=== PATIENT | male | born 1960 | race Caucasian/White ===

== ENCOUNTER → 2018-09-16 06:54 | Outpatient (CLI) | payer OTHER, SELFPAY ==
[2018-08-15 15:45] VITALS: BMI 30.7
--- NOTE | 2018-09-16 11:19 | STRESSREP ---
Stress Test Report Exercise stress myocardial perfusion scan. 58-year-old man with a history of previous coronary artery disease involving the right coronary artery as well as the left anterior descending artery. Stress protocol: Resting EKG demonstrates normal sinus rhythm with rate of 60 bpm normal intervals are noted resting blood pressure 138/88 mmHg. The patient exercised according to regular Graham protocol for total duration of 11 minutes patient completed 2 minutes into stage IV of the Graham protocol the maximum heart rate attained was 127 bpm which was 77% of maximum predicted heart rate the maximum workload was 13.4 metabolic equivalents. At rest there were no ST or T wave changes noted suggest ischemia at peak exercise upsloping ST changes only were noted with normally the criteria for ischemia. No clinical angina was noted the test was terminated due to leg fatigue. The resting blood pressure 138/88 with a peak blood pressure of 160/80 mmHg. Myocardial perfusion protocol. 14.8 mCi of technetium 99m sestamibi was injected at rest. Patient exercised according to regular Graham protocol for total duration of 11 minutes at peak exercise 44.7 mCi of technetium 99m sestamibi was injected stress images were obtained stress and rest images were reconstructed and compared in the short axis vertical long and horizontal long axis. Gated images were also obtained per Perfusion SPECT analysis: Review of the stress images demonstrate normal uptake of tracer noted in all areas of the myocardium. The resting images similarly demonstrate normal uptake of tracer noted in all areas of the myocardium. No areas of reversibility are noted suggest ischemia. Gated SPECT analysis: The gated ejection fraction is noted to be 59%. Conclusion: Normal exercise myocardial perfusion stress test at a high workload. Preserved ejection fraction. No arrhythmias noted. Excellent functional capacity.
== END ==
PROVIDERS: Referring Provider Internal Medicine Cardiovascular Disease; Visit Provider Internal Medicine Cardiovascular Disease
DX: I25.10 Atherosclerotic heart disease of native coronary artery without angina pectoris (principal)
CPT/HCPCS: 78452; 93017; A9500; A4216

== ENCOUNTER → 2019-02-26 11:11 | Outpatient (CLI) | payer OTHER, SELFPAY ==
[2019-02-26 09:42] VITALS: BMI 30.2
--- NOTE | 2019-02-26 11:21 | CT_ITS ---
STUDY: CT CHEST WITHOUT CONTRAST REASON FOR EXAM: Male, 59 years old. Nodule. History of prior heart stents. RADIATION DOSAGE (If Supplied By Facility): CTDIvol = ( 20.07 ) mGy, DLP = ( 971.78 ) mGycm TECHNIQUE: Transaxial imaging was performed without the administration of intravenous contrast material. Multiplanar coronal and sagittal images were reformatted. Individualized dose optimization techniques were used for this CT. COMPARISON: None. FINDINGS: The lungs are well expanded. There is a 2 mm nodule in the posterior right lung apex best seen on image 29 of series 4. No other visualized mass or infiltrate is noted within the lungs. There is no demonstrated pleural abnormality. Normal heart and pericardium. There are calcifications of the coronary arteries. Normal mediastinum. Normal hilar regions. Normal unenhanced pulmonary arteries. Normal aorta arch and descending thoracic aorta. There are multi-level degenerative changes of the thoracic spine. The soft tissues of the chest appear grossly normal. Hepatosplenomegaly. There are large exophytic cyst off the upper poles of both kidneys. CT/Chest without Contrast IMPRESSION: 1. Tiny nodule in the right lung apex. There is no other visualized mass or infiltrate. 2. Coronary artery calcifications. 3. Degenerative changes of the thoracic spine. 4. Bilateral renal cysts. 5. Hepatosplenomegaly. Electronically Signed: Everardo Odell DO at 16:52 EDT Tel [phone], Service support ,
== END ==
DX: R91.1 Solitary pulmonary nodule (principal)
CPT/HCPCS: 71250

== ENCOUNTER → 2019-03-14 14:54 | Outpatient (CLI) | payer OTHER, SELFPAY ==
[2019-02-26 09:42] VITALS: BMI 30.2
--- NOTE | 2019-03-14 14:55 | ECHOD_ITS ---
Reason For Study: Afib/Flutter Procedure This was a 2D Doppler, Color Flow transthoracic echocardiogram. Exam performed in department. Left Ventricle Normal LV size. Left ventricular systolic function is normal. The estimated ejection fraction is 55 %. Normal diastology for age. No regional wall motion abnormalities noted. Right Ventricle Normal RV size. Normal systolic function. Atria Normal left atrium. Normal right atrium. Mitral Valve Normal mitral valve. Tricuspid Valve Normal tricuspid valve. Aortic Valve Normal aortic valve. Pulmonic Valve Normal pulmonic valve. Great Vessels Normal aortic root. The pulmonary artery is normal size. Normal inferior vena cava. Pericardium/Pleural No pericardial effusion. MMode/2D Measurements & Calculations LVIDd: 5.6 cm IVSd: 1.2 cm LA dimension: 4.2 cm LVIDs: 4.2 cm LVPWd: 1.1 cm RVDd: 3.7 cm FS: 25.5 % LAV(MOD-bp): 63.9 ml LVAd ap4: 36.5 cm2 SV(MOD-sp4): 75.3 ml LAV(MOD-bp) Indexed: 28.8 ml/m2 EDV(MOD-sp4): 134.5 ml LAV(MOD-sp2): 64.6 ml EDV(sp4-el): 134.4 ml LAV(MOD-sp4): 50.7 ml LVAs ap4: 21.3 cm2 ESV(MOD-sp4): 59.2 ml ESV(sp4-el): 59.7 ml EF(MOD-sp4): 56.0 % EF(sp4-el): 55.5 % SV(sp4-el): 74.6 ml LA A4 area: 19.7 cm2 RA A4 area: 15.9 cm2 Time Measurements MV dec time: 0.22 sec Doppler Measurements & Calculations MV E max henrry: 60.0 cm/sec Lat Peak E' Henrry: 8.8 cm/sec Med Peak E' Henrry: 5.4 cm/sec MV A max henrry: 61.5 cm/sec E/E' lat: 6.8 E/E' med: 11.1 MV E/A: 0.98 MV V2 max: 70.2 cm/sec MV P1/2t max henrry: 63.4 cm/sec Ao V2 max: 98.1 cm/sec MV max P.0 mmHg MV P1/2t: 123.5 msec Ao max P.9 mmHg MV V2 mean: 41.0 cm/sec MV mean P.76 mmHg MV dec slope: 150.4 cm/sec2 MV V2 VTI: 22.9 cm MVA(P1/2t): 1.8 cm2 LV V1 max: 78.5 cm/sec PA V2 max: 111.7 cm/sec LV V1 max P.5 mmHg Interpretation Summary Normal LV size. Left ventricular systolic function is normal. The estimated ejection fraction is 55 %. Normal diastology for age. Structurally normal valves. Ordering Physician: Christopher Rowe Referring Physician: Christopher Rowe Performed By: Gianni Dejesus RCS
== END ==
PROVIDERS: Referring Provider Internal Medicine Cardiovascular Disease; Visit Provider Internal Medicine Cardiovascular Disease
DX: I48.0 Paroxysmal atrial fibrillation (principal); I48.92 Unspecified atrial flutter
CPT/HCPCS: 93306

== ENCOUNTER → 2020-01-21 09:22 | Outpatient (CLI) | payer OTHER, SELFPAY ==
[2020-01-21 08:53] VITALS: BMI 30.4
[2020-01-21 10:34] LABS: AST(SGOT) 32 U/L (15-37); Alanine Aminotransfer ALT/SGPT 57 U/L (16-61); Albumin, Serum 3.8 g/dL (3.2-5.0); Alkaline Phosphatase 90 U/L (45-117); Anion Gap 4 (5-15); BUN 14 mg/dL (7-18); BUN/Creat Ratio 16.7 RATIO (10-20); Bilirubin, Direct 0.24 mg/dL (0.00-0.30); Calcium,Total 8.6 mg/dL (8.5-10.1); Chloride 109 mmol/L (98-107); Cholesterol 81 mg/dL (200); Creatinine, Serum 0.84 mg/dL (0.70-1.30); EST Glomerular Filtration Rate 100 mL/min (>60); Est Glom Filt Rate - Afr Amer 121 mL/min (>60); Globulin 3.2 g/dL (2.2-4.2); Glucose 110 mg/dL (74-106); High Density Lipoprotein 13 mg/dL; Potassium 4.4 mmol/L (3.5-5.1); Sodium Level 141 mmol/L (136-145); Triglycerides 98 mg/dL; Very Low Density Lipoprotein 20 mg/dL (5-40)
== END ==
PROVIDERS: Referring Provider Internal Medicine Cardiovascular Disease; Visit Provider Internal Medicine Cardiovascular Disease
DX: I48.0 Paroxysmal atrial fibrillation (principal); E78.00 Pure hypercholesterolemia, unspecified; I25.10 Atherosclerotic heart disease of native coronary artery without angina pectoris; Z95.5 Presence of coronary angioplasty implant and graft; I10 Essential (primary) hypertension; I49.3 Ventricular premature depolarization; E78.6 Lipoprotein deficiency; E78.2 Mixed hyperlipidemia
CPT/HCPCS: 36415; 80048; 80061; 80076; 84443

== ENCOUNTER → 2020-05-13 07:43 | Outpatient (CLI) | payer OTHER, SELFPAY ==
[2020-01-21 08:53] VITALS: BMI 30.4
--- NOTE | 2020-05-13 07:46 | CT_ITS ---
STUDY: CT CHEST WITHOUT CONTRAST REASON FOR EXAM: Male, 60 years old. LUNG NODULE FOLLOW UP RADIATION DOSAGE (If Supplied By Facility): CTDIvol = ( 19.48 ) mGy, DLP = ( 691.20 ) mGycm TECHNIQUE: Transaxial imaging was performed without the administration of intravenous contrast material. Multiplanar coronal and sagittal images were reformatted. Individualized dose optimization techniques were used for this CT. COMPARISON: 02/26/2019 FINDINGS: There is a calcified granuloma in the posterior right upper lobe, stable. There is a 4 mm noncalcified nodule in the right lower lobe on image 60, stable. No new noncalcified pulmonary nodules. There is no demonstrated pleural abnormality. Normal heart and pericardium. There are coronary artery calcifications and stents. Normal mediastinum. Normal hilar regions. Normal unenhanced pulmonary arteries. Normal aorta arch and descending thoracic aorta. There are multi-level degenerative changes of the thoracic spine. Bilateral renal cysts are similar in their visualized extent. CT/Chest without Contrast IMPRESSION: 1. No new or enlarging noncalcified nodule/mass. 2. 4 mm noncalcified nodule, stable more than one year. No recommended specific imaging follow-up according to current [employer] guidelines. 3. Benign granuloma lateral right upper lobe. Electronically Signed: Dominic Meng MD ([place]) at 14:03 EDT , Service support ,
== END ==
DX: R91.1 Solitary pulmonary nodule (principal)
CPT/HCPCS: 71250

== ENCOUNTER 2020-10-15 08:42 | Outpatient (RCR) | payer OTHER, SELFPAY ==
[2020-01-21 08:53] VITALS: BMI 30.4
[2020-10-15] MEDS: COVID-19 VACC, MRNA(PFIZER)/PF 30 MCG/0.3 ML SYRINGE IM (13:51)
[2020-11-05] MEDS: COVID-19 VACC, MRNA(PFIZER)/PF 30 MCG/0.3 ML SYRINGE IM (13:44)
== END 2021-01-11 23:59 ==
LOC: IMMUN 08:42
PROVIDERS: Visit Provider Family Medicine
DX: Z23 Encounter for immunization (principal)
CPT/HCPCS: 0001A; 0002A; 91300

== ENCOUNTER → 2021-01-28 06:57 | Outpatient (CLI) | payer OTHER, SELFPAY ==
[2021-01-18 07:45] VITALS: BMI 30.3
[2021-01-18 11:11] LABS: AST(SGOT) 38 U/L (15-37); Alanine Aminotransfer ALT/SGPT 64 U/L (16-61); Alkaline Phosphatase 95 U/L (45-117); Bilirubin, Direct 0.22 mg/dL (0.00-0.30); Cholesterol 87 mg/dL (200); Globulin 3.4 g/dL (2.2-4.2); High Density Lipoprotein 17 mg/dL; Protein, Total 7.4 g/dL (6.4-8.2); Triglycerides 77 mg/dL; Very Low Density Lipoprotein 15 mg/dL (5-40)
--- NOTE | 2021-01-28 12:54 | STRESSREP ---
Stress Test Report Exercise myocardial perfusion stress test. 60-year-old man with a history of coronary artery disease. Stress protocol: Resting EKG demonstrates normal sinus rhythm with a rate of 80 bpm normal intervals are noted resting blood pressure is 126/70 mmHg. The patient exercised according to regular Graham protocol for total duration of 11 minutes completing 2 minutes into stage IV of the Graham protocol. The maximum heart rate attained was 130 bpm which was 80% of maximum predicted heart rate the maximum workload was 13.4 metabolic equivalents. At rest there were no ST or T wave changes noted to suggest ischemia and at peak exercise upsloping ST changes were noted. No evidence of ischemia was noted no clinical angina was noted occasional premature ventricular complexes present. The test was terminated due to the target heart rate being achieved and peak exercise dyspnea. The peak blood pressure was 160/70 mmHg which was an excellent blood pressure response to exercise. Myocardial perfusion protocol. 13.9 mCi of technetium 99m sestamibi was injected at rest. The patient exercised according to regular Graham protocol for 11 minutes and at peak exercise 44.2 mCi of technetium 99m sestamibi was injected stress images were obtained stress and rest images were reconstructed in comparing the short axis vertical long horizontal long axis. Gated images were also obtained to Perfusion SPECT analysis: Review of the stress images demonstrate normal uptake of tracer noted in all areas of the myocardium. The resting images similarly demonstrate normal uptake of tracer noted in all areas of the myocardium. No previous infarct is noted no ischemia is noted. Gated SPECT analysis: The gated ejection fraction is over 60%. Conclusion: Normal exercise myocardial perfusion stress test at a high workload. No clinical angina noted. Preserved ejection fraction. Excellent functional capacity.
== END ==
PROVIDERS: Referring Provider Internal Medicine Cardiovascular Disease; Visit Provider Internal Medicine Cardiovascular Disease
DX: I25.10 Atherosclerotic heart disease of native coronary artery without angina pectoris (principal); Z95.5 Presence of coronary angioplasty implant and graft
CPT/HCPCS: 36415; 78452; 80061; 80076; 93017; A9500; A4216

== ENCOUNTER 2021-10-20 14:17 | Outpatient (CLI) | payer OTHER, SELFPAY ==
[2021-10-20] MEDS: 0.9% Saline Lock 10 ML Syringe IV (14:26)
[2021-10-20 14:27] VITALS: BP 147/93; PULSE 69; RESP 16; TEMP 36.8; O2SAT 100; BMI 31.1
[2021-10-20 15:05] VITALS: BP 132/91; PULSE 69; RESP 16; TEMP 36.9; O2SAT 99
[2021-10-20 16:05] VITALS: BP 129/87; PULSE 65; RESP 16; TEMP 36.7; O2SAT 99
== END 2021-10-20 23:59 | disposition home or self-care (01) ==
LOC: MS3OUT 14:18 → MS3 14:18
PROVIDERS: Referring Provider Nurse Practitioner Adult Health; Visit Provider Nurse Practitioner Adult Health
DX: Z23 Encounter for immunization (principal); U07.1 COVID-19
CPT/HCPCS: J7050; M0247; A4216; Q0247

== ENCOUNTER → 2022-01-24 | Outpatient (CLI) | payer OTHER, SELFPAY ==
[2022-01-24 10:31] LABS: AST(SGOT) 36 U/L (15-37); Alanine Aminotransfer ALT/SGPT 69 U/L (16-61); Alkaline Phosphatase 96 U/L (45-117); Bilirubin, Direct 0.18 mg/dL (0.00-0.30); Cholesterol 78 mg/dL (200); Globulin 3.2 g/dL (2.2-4.2); High Density Lipoprotein 20 mg/dL; Protein, Total 7.2 g/dL (6.4-8.2); Triglycerides 85 mg/dL; Very Low Density Lipoprotein 17 mg/dL (5-40)
== END | disposition home or self-care (01) ==
LOC: LAB 09:46
PROVIDERS: PCP Internal Medicine; Referring Provider Internal Medicine Cardiovascular Disease; Visit Provider Internal Medicine Cardiovascular Disease
DX: E78.00 Pure hypercholesterolemia, unspecified (principal)
CPT/HCPCS: 36415; 80061; 80076

== ENCOUNTER → 2023-01-30 | Outpatient (CLI) | payer OTHER, SELFPAY ==
[2023-01-30 11:06] LABS: AST(SGOT) 31 U/L (15-37); Alanine Aminotransfer ALT/SGPT 51 U/L (16-61); Albumin, Serum 3.9 g/dL (3.2-5.0); Alkaline Phosphatase 97 U/L (45-117); Cholesterol 86 mg/dL (200); Globulin 3.5 g/dL (2.2-4.2); High Density Lipoprotein 15 mg/dL; Protein, Total 7.4 g/dL (6.4-8.2); Thyroid Stim Hormone (TSH) 3.36 uIU/mL (0.358-3.74); Triglycerides 78 mg/dL; Very Low Density Lipoprotein 16 mg/dL (5-40)
== END | disposition home or self-care (01) ==
LOC: LAB 09:04
PROVIDERS: PCP Internal Medicine; Referring Provider Internal Medicine Cardiovascular Disease; Visit Provider Internal Medicine Cardiovascular Disease
DX: E78.00 Pure hypercholesterolemia, unspecified (principal); Z95.5 Presence of coronary angioplasty implant and graft
CPT/HCPCS: 36415; 80061; 80076; 84443

== ENCOUNTER → 2023-02-12 | Outpatient (CLI) | payer OTHER, SELFPAY ==
--- NOTE | 2023-02-12 06:32 | ECHOD_ITS ---
Version 2 Reason For Study: CAD Procedure This was a 2D Doppler, Color Flow transthoracic echocardiogram. The study was technically difficult. Contrast injection was performed. Exam performed in department. Left Ventricle Normal LV size. Left ventricular systolic function is normal. The estimated ejection fraction is 60 %. Stage 1 diastolic dysfunction. No regional wall motion abnormalities noted. Right Ventricle Normal RV size. Normal systolic function. Atria Normal left atrium. Normal right atrium. Patent foramen ovale. Mitral Valve Normal mitral valve. Tricuspid Valve Normal tricuspid valve. Aortic Valve Trisinus/trileaflet aortic valve. Pulmonic Valve Normal pulmonic valve. Great Vessels Normal aortic root. The pulmonary artery is normal size. Pericardium/Pleural No pericardial effusion. Medication 20 gauge I.V. with prn adaptor inserted into right arm. Diluted definity 2ml given slow IV push to enhance endocardial definition. Performed a rapid injection of agitated mix of 9 cc saline and 1cc air to assess for atrial septal defect. MMode/2D Measurements & Calculations LVIDd: 5.8 cm IVSd: 0.77 cm Ao root diam: 3.8 cm LVIDs: 4.0 cm LVPWd: 0.99 cm LA dimension: 3.8 cm RVDd: 3.5 cm FS: 31.9 % LAV(MOD-bp): 49.2 ml LVAd ap4: 32.0 cm2 SV(MOD-sp4): 59.2 ml LAV(MOD-bp) Indexed: 22.0 ml/m2 LVLd ap4: 7.6 cm LAV(MOD-sp2): 56.4 ml EDV(MOD-sp4): 108.3 ml LAV(MOD-sp4): 37.5 ml EDV(sp4-el): 113.6 ml LVAs ap4: 20.1 cm2 LVLs ap4: 6.8 cm ESV(MOD-sp4): 49.1 ml ESV(sp4-el): 50.5 ml EF(MOD-sp4): 54.7 % EF(sp4-el): 55.5 % SV(sp4-el): 63.1 ml LA A4 area: 16.1 cm2 RA A4 area: 15.9 cm2 Time Measurements MV dec time: 0.24 sec Doppler Measurements & Calculations MV E max henrry: 51.5 cm/sec Lat Peak E' Henrry: 12.4 cm/sec Med Peak E' Henrry: 6.4 cm/sec MV A max henrry: 69.1 cm/sec E/E' lat: 4.1 E/E' med: 8.0 MV E/A: 0.75 MV V2 max: 68.9 cm/sec MV P1/2t max henrry: 51.0 cm/sec Ao V2 max: 118.4 cm/sec MV max P.9 mmHg MV P1/2t: 70.0 msec Ao max P.6 mmHg MV V2 mean: 41.6 cm/sec Ao V2 mean: 87.2 cm/sec MV mean P.80 mmHg MV dec slope: 213.3 cm/sec2 Ao mean P.4 mmHg MV V2 VTI: 15.0 cm MVA(P1/2t): 3.1 cm2 Ao V2 VTI: 25.0 cm AV (velocity ratio): 0.71 LV V1 max: 90.7 cm/sec PA V2 max: 118.2 cm/sec LV V1 max P.3 mmHg PA V2 mean: 74.9 cm/sec LV V1 mean P.0 mmHg LV V1 mean: 66.9 cm/sec LV V1 VTI: 17.8 cm ECHO/Echo Complete W/ Contrast Interpretation Summary Normal LV size. Left ventricular systolic function is normal. The estimated ejection fraction is 60 %. No regional wall motion abnormalities noted. Stage 1 diastolic dysfunction. Patent foramen ovale. Contrast injection was performed. Ordering Physician: Christopher Rowe Referring Physician: Elina Head Performed By: Gianni Dejesus RCS
--- NOTE | 2023-02-12 08:52 | STRESSREP ---
Stress Test Report Exercise myocardial perfusion stress test. 62-year-old man with a history of coronary artery disease Stress protocol: Resting EKG demonstrates normal sinus rhythm with a rate of 86 bpm resting blood pressure is 122/78 mmHg. The patient exercised according to the regular Graham protocol for a total duration of 11 minutes attaining a maximum heart rate of 160 bpm which was 100% of maximum predicted heart rate; the maximum workload was 13.7 metabolic equivalents. At rest there were no ST or T wave changes noted to suggest ischemia and at peak exercise upsloping ST changes only were noted which did not meet the criteria for ischemia. No clinical angina was noted the test was terminated due to the target heart rate being achieved/fatigue. The peak blood pressure was 168/74 mmHg. Rate-pressure product was 24,000. Myocardial perfusion protocol. 14.8 mCi of technetium 99m sestamibi was injected at rest. The patient exercised according to regular Grhaam protocol for total duration of 11 minutes and at peak exercise 45 mCi of technetium 99m sestamibi was injected stress images were obtained stress and rest images were reconstructed in comparing the short axis vertical long and horizontal long axis. Gated images were also obtained. Perfusion SPECT analysis: Review of the stress images demonstrate normal uptake of tracer noted in all areas of the myocardium. The resting images similarly demonstrate normal uptake of tracer noted in all areas of the myocardium. No areas of reversibility are noted to suggest ischemia no previous infarct was noted. Gated SPECT analysis: The gated ejection fraction is 62%. Conclusion: Normal exercise myocardial perfusion stress test at a high workload Preserved ejection fraction.
== END | disposition home or self-care (01) ==
LOC: CVS 06:31
PROVIDERS: PCP Internal Medicine; Referring Provider Internal Medicine Cardiovascular Disease; Visit Provider Internal Medicine Cardiovascular Disease
DX: I10 Essential (primary) hypertension (principal); I25.10 Atherosclerotic heart disease of native coronary artery without angina pectoris; Z95.5 Presence of coronary angioplasty implant and graft
CPT/HCPCS: 78452; 93017; 93306; A9500; Q9957; A4216; C8929

== ENCOUNTER → 2024-01-29 | Outpatient (CLI) | payer OTHER, SELFPAY ==
[2024-01-29 11:31] LABS: AST(SGOT) 34 U/L (15-37); Alanine Aminotransfer ALT/SGPT 59 U/L (16-61); Alkaline Phosphatase 104 U/L (45-117); Anion Gap 2 (5-15); BUN 11 mg/dL (7-18); BUN/Creat Ratio 12.1 RATIO (10-20); Bilirubin, Direct 0.18 mg/dL (0.00-0.30); Calcium,Total 8.9 mg/dL (8.5-10.1); Chloride 107 mmol/L (98-107); Cholesterol 83 mg/dL (200); Creatinine, Serum 0.91 mg/dL (0.70-1.30); EST Glomerular Filtration Rate 89 mL/min (>60); Est Glom Filt Rate - Afr Amer 108 mL/min (>60); Globulin 3.4 g/dL (2.2-4.2); Glucose 111 mg/dL (74-106); High Density Lipoprotein 18 mg/dL; Potassium 4.9 mmol/L (3.5-5.1); Protein, Total 7.4 g/dL (6.4-8.2); Sodium Level 137 mmol/L (136-145); Thyroid Stim Hormone (TSH) 3.24 uIU/mL (0.358-3.74); Triglycerides 84 mg/dL; Very Low Density Lipoprotein 17 mg/dL (5-40)
== END | disposition home or self-care (01) ==
LOC: LAB 09:24
PROVIDERS: PCP Internal Medicine; Referring Provider Internal Medicine Cardiovascular Disease; Visit Provider Internal Medicine Cardiovascular Disease
DX: E78.2 Mixed hyperlipidemia (principal); I10 Essential (primary) hypertension
CPT/HCPCS: 36415; 80048; 80061; 80076; 84443

== ENCOUNTER → 2025-03-03 | Outpatient (CLI) | payer OTHER, SELFPAY ==
[2025-03-03 10:03] LABS: Hematocrit 48.5 % (40-54); Hemoglobin 16.1 g/dL (13.0-16.5); Immature Granulocytes Count 0.060 X10^3/uL (0.0-0.0); Mean Corp Hgb Conc 33.2 g/dL (32-36); Mean Corpuscular Volume 94.7 fL (80-94); Mean Platelet Vol. 10.0 fl (6.2-12.0); NRBC Flagged by Analyzer 0 % (0-5); Platelet Count 188 K/mm3 (150-450); RBC Distribution Width CV 13.2 % (11.6-14.6); RBC Distribution Width SD 46.2 fl (35.1-43.9); Red Blood Count 5.12 M/mm3 (4.6-6.2); White Blood Count 5.0 K/mm3 (4.4-11.0)
[2025-03-03 11:44] LABS: AST(SGOT) 36 U/L (<=37); Alanine Aminotransfer ALT/SGPT 57 U/L (<=46); Albumin, Serum 4.5 g/dL (3.4-4.8); Alkaline Phosphatase 101 U/L (40-129); Anion Gap 11 (5-15); BUN 15 mg/dL (4-19); BUN/Creat Ratio 17.1 RATIO (10-20); Calcium,Total 9.5 mg/dL (7.6-11.0); Carbon Dioxide 24.5 mmol/L (21.0-32.0); Chloride 105 mmol/L (98-108); Cholesterol 90 mg/dL (<=200); Globulin 2.7 g/dL (2.2-4.2); Glucose 122 mg/dL (70-99); Low Density Lipoprotein Calc. 54 mg/dL; PSA,Total- Diagnostic 1.48 ng/mL (0.00-4.00); Potassium 5.0 mmol/L (3.3-5.1); Triglycerides 89 mg/dL; Very Low Density Lipoprotein 18 mg/dL (5-40); cholesterol:hdl ratio screen 4.99
--- OUTSIDE RECORDS SUMMARY | 2025-03-03 20:48 | XMS RPT_ITS | CCD ---
Author Organization [facility] Care Team Providers Care Vessel Slag Worker Name Role Phone Gómez GUERRERO, CESAR Yates Attending Provider [phone] Dr. Christopher Rowe Attending Provider [phone] Town Doctor, Out of Primary Care Provider Jamison bradford [facility] Doctor, Out of Referring Provider Kike guerrier [facility] Doctor, Out of Referring Provider Dr. Christopher Conde Attending Provider [phone] Elina Headley Primary Care Provider [phone] Dr. Edward Harding Attending Provider [phone] Dr. Christopher Rowe Referring Provider [phone] Christopher Rowe Other Provider KAYODE ROSENBAUM, DR ELINA Yates Primary Care Unavailab fareed HEATHER ASSOCIATE MERCHANDISE PLANNER-RAT BREEDER, EDMOND Attending Unavaila ble Christopher Rowe Attending Unavailable Elina Headley Referring Unavailable Elina Headley Primary Care Unavailable Dr. Elina Headley MD Referring Provider [phone] Dr. Christopher Rowe MD Attending Provider [phone] Dr. Chao Byrd MD Primary Care Provider Medications Current Medications Medication Drug Class(es) Dates Sig (Normalized) Sig (Original) aspirin 81 mg delayed release oral tablet (16 sources) Platelet Aggregation Inhibitor, Nonsteroidal Anti-inflammatory Drug Start: 01-21-2020 take 1 tablet by mouth once daily Aspirin (Adult Aspirin Regimen) 81 mg tablet,delayed release (/EC) Active 81 mg PO DAILY January 21, 2020 12:00am Start: 08-15-2017 End: 01-21-2020 Aspirin 325 mg tablet Discon tinued 81 mg PO daily August 15, 2017 5:09pm January 21, 2020 9:01am Start: 08-15-2017 End: 01-21-2020 take 81 mg by mouth once daily Aspirin Discontinued 81 MG PO daily August 15, 2017 5:09pm January 21, 2020 9:01am Start: 08-15-2017 End: 08-15-2017 take 1 tablet by mouth once daily Aspirin 325 mg tablet Discontinued 325 mg PO daily August 15, 2017 1:00am August 15, 2017 5:16pm Start: 08-15-2017 End: 08-15-2017 Aspirin (Adult Low Dose Aspi rin) 81 mg tablet,delayed release (DR/EC) Discontinued 81 mg PO daily August 15, 2017 1:00am August 15, 2017 4:36pm atenolol 50 mg oral tablet (20 sources) beta-Adrenergic Alirio Start: 08-15-2017 End: 03-03-2025 take 1 tablet by mouth once daily Atenolol 50 mg tablet Active 50 mg PO DAILY 90 4 March 03, 2025 9:11am Start: 08-15-2017 End: 07-26-2018 Atenolol 50 mg tablet Discon tinued PO 90 90 0 August 15, 2017 1:00am July 26, 2018 3:06pm Start: 07-18-2017 End: 08-15-2017 take 1 tablet by mouth once Atenolol 25 mg tablet Disc ontinued 25 mg PO ONCE July 18, 2017 1:00am August 15, 2017 1:16pm atorvastatin 80 mg oral tablet (20 sources) HMG-CoA Reductase Inhibitor Start: 08-15-2017 End: 03-03-2025 take 1 tablet by mouth at bedtime Atorvastatin 80 mg tablet Active 80 mg PO AT BEDTIME 90 3 March 03, 2025 9:11am cholecalciferol 0.025 mg oral capsule (1 source) Vitamin D Start: 03-03-2025 take 1 capsule by mouth once daily Cholecalciferol (Vitamin D3) 25 mcg (1,000 unit) capsule Active 25 ug PO daily March 03, 2025 12:00am clopidogrel 75 mg oral tablet (20 sources) P2Y12 Platelet Inhibitor Start: 07-18-2017 End: 03-03-2025 take 1 tablet by mouth once daily Clopidogrel 75 mg tablet Active 75 mg PO DAILY 90 3 March 03, 2025 9:11am losartan potassium 50 mg oral tablet (20 sources) Angiotensin 2 Receptor Alirio Start: 03-21-2018 End: 03-03-2025 take 1 tablet by mouth once daily Losartan 50 mg tablet Active 50 mg PO daily 90 3 March 03, 2025 9:11am omega-3 acid ethyl esters (mcc) 1000 mg oral capsule (4 sources) Start: 07-18-2017 Mineral 1-Ccn-Ckp-Fish Oil (Fish Oil) 1,000 mg (120 mg-180 mg) capsule Active 1 NMA PO 0 July 18, 2017 1:00am Completed/Discontinued Medications Medication Drug Class(es) Dates Sig (Normalized) Sig (Original) apixaban 5 mg oral tablet (4 sources) Factor Xa Inhibitor Start: 02-26-2019 End: 02-26-2019 take 1 tablet by mouth twice daily Apixaban 5 mg tablet Discontinued 5 mg PO TWICE A DAY 60 0 February 26, 2019 12:00am February 26, 2019 10:33am dexamethasone 6 mg oral tablet (8 sources) Corticosteroid Start: 10-20-2021 End: 01-24-2022 take 1 tablet by mouth once daily Dexamethasone (Decadron) 6 mg tablet Discontinued 6 mg PO DAILY 5 0 January 24, 2022 9:05am January 24, 2022 9:06am pt has not started yet 24 hr dilTIAZem hydrochloride 120 mg extended release oral capsule (4 sources) Calcium Channel Alirio Start: 02-26-2019 End: 02-26-2019 take 1 capsule by mouth once daily Diltiazem Hcl 120 mg capsule,extended release 24hr Discontinued 120 mg PO DAILY 30 0 February 26, 2019 12:00am February 26, 2019 10:33am metoprolol tartrate 25 mg oral tablet (4 sources) beta-Adrenergic Alirio Start: 02-26-2019 End: 02-26-2019 take 1 tablet by mouth twice daily Metoprolol Tartrate 25 mg tablet Discontinued 25 mg PO TWICE A DAY 60 0 February 26, 2019 12:00am February 26, 2019 10:33am niacin 500 mg extended release oral capsule (4 sources) Nicotinic Acid Start: 07-18-2017 End: 08-15-2017 take 1 capsule by mouth once daily in the morning Niacin 500 mg capsule, extended release Discontinued 500 mg PO EVERY MORNING July 18, 2017 1:00am August 15, 2017 5:10pm simvastatin 40 mg oral tablet (8 sources) HMG-CoA Reductase Inhibitor Start: 08-15-2017 End: 08-15-2017 Simvastatin 40 mg tablet Discontinued PO 90 90 0 August 15, 2017 1:00am August 15, 2017 5:13pm Start: 08-15-2017 End: 08-15-2017 Simvastatin Discontinued PO 90 90 August 15, 2017 1:00am August 15, 2017 5:13pm Start: 07-18-2017 End: 08-15-2017 take 1 tablet by mouth once daily in the morning Simvastatin 20 mg tablet Discontinued 20 mg PO EVERY MORNING July 18, 2017 1:00am August 15, 2017 1:16pm Problems Active Problems Problem Classification Problem Date Documented Da te Episodic/Chronic Cardiac dysrhythmias (8 sources) Ventricular premature beats; Translations: [Ventricular premature depolarization] Onset: 02-06-2019 01-17-2021 Chronic Comment on above: admitted w/ sepsis Coronary atherosclerosis and other heart disease (8 sources) Old myocardial infarction; Translations: [Old myocardial infarction] 08-15-2017 Chronic Disorders of lipid metabolism (7 sources) Mixed hyperlipidemia; Translations: [Mixed hyperlipidemia] Chronic Essential hypertension (7 sources) Essential hypertension; Translations: [Essential (primary) hypertension] Chronic Other nutritional; endocrine; and metabolic disorders (4 sources) Cholesterol level - finding; Translations: [Lipoprotein deficiency] 01-17-2021 Chronic Past or Other Problems Problem Classification Problem Date Documented Da te Episodic/Chronic Coronary atherosclerosis and other heart disease (3 sources) Presence of coronary angioplasty implant and graft; Translations: [Percutaneous transluminal coronary angioplasty status] Onset: 05-12-2008 Episodic Viral infection (8 sources) Disease caused by 2019-nCoV; Translations: [COVID-19] Onset: 10-04-2021 01-23-2022 Episodic Results Test Name Value Interpretation Reference Range Facility Basophil percentageOrdered B y: [place] on 01-30-2023 Bilirubin [Mass/Vol] 0.90 mg/dL 0.20-1.00 [facility] Comment on above: For patients on eltr ombopag therapy, use of Dimension [place] TBIL is not recommended. Cholesterol [Mass/Vol] 86 mg/dL <[address] [facility] Comment on above: <200 mg/dL Desirable 200-240 mg/dL Borderline >240 mg/dL High Risk Protein [Mass/Vol] 7.4 g/dL 6.4-8.[address] [facility] Triglyceride [Mass/Vol] 78 mg/dL <199 [facility] Comment on above: The drugs N-Acetylcy steine and Metamizole may falsely depress this assay.Serum Triglycerides Reference Interval Normal <150 mg/dL Borderline high 150 - 199 mg/dL High 200 - 499 mg/dL Very High > or = 500 mg/dL Direct bilirubinOrdered By: Christopher Rowe on 01-30-2023 Bilirubin.direct [Mass/Vol] 0.20 mg/dL 0.00-0.30 [facility] Laboratory - Chemistry and C hemistry - challengeOrdered By: Christopher Rowe on 01-30-2023 ALP [Catalytic activity/Vol] 97 U/L 45-117 [facility] ALT [Catalytic activity/Vol] 51 U/L 16-61 [facility] Globulin (S) [Mass/Vol] 3.5 g/dL 2.2-4.2 [facility] No Panel InformationOrdered By: Christopher Rowe on 01-30-2023 Thyroid Stimulating Hormone (TSH) 3.36 uIU/mL 0.358-3.74 [facility] Serum or plasma albumin lluvia urement (mass/volume)Ordered By: Christopher Rowe on 01-30-2023 Albumin [Mass/Vol] 3.9 g/dL 3.2-5.[address] [facility] Serum or plasma cholesterol in HDL measurement (mass/volume)Ordered By: Christopher Rowe on 01-30-2023 Cholesterol in HDL [Mass/Vol] 15 mg/dL >40 [facility] Comment on above: The drugs N-Acetylcy steine and Metamizole may falsely depress this assay. Reference Range HDL <40 mg/dL Low HDL Cholesterol HDL >or= 60 mg/dL High HDL Cholesterol Serum or plasma cholesterol in VLDL measurement (mass/volume)Ordered By: Christopher Rowe on 01-30-2023 Cholesterol in VLDL [Mass/Vol] 16 mg/dL 5-40 [facility] Serum or plasma low density lipoprotein (LDL) cholesterol measurement (mass/volume)Ordered By: Christopher Rowe on 01-30-2023 Cholesterol in LDL [Mass/Vol] 55 mg/dL 0-130 [facility] Thin prep Papanicolaou smear with manual screeningOrdered By: Christopher Rowe on 01-30-2023 Thin prep Papanicolaou smear with manual screening 31 U/L 15-37 [facility] Comment on above: Slight Hemolysis, Re sult may be falsely increased. Basophil percentageon 2021 Bilirubin [Mass/Vol] 0.50 mg/dL 0.20-1.00 [facility] Work Phone: Comment on above: For patients on eltr ombopag therapy, use of Dimension [place] TBIL is not recommended. Cholesterol [Mass/Vol] 78 mg/dL <[address] [facility] Work Phone: Comment on above: <200 mg/dL Desirable 200-240 mg/dL Borderline >240 mg/dL High Risk Protein [Mass/Vol] 7.2 g/dL 6.4-8.[address] [facility] Work Phone: [phone] Triglyceride [Mass/Vol] 85 mg/dL <199 [facility] Work Phone: Comment on above: The drugs N-Acetylcy steine and Metamizole may falsely depress this assay.Serum Triglycerides Reference Interval Normal <150 mg/dL Borderline high 150 - 199 mg/dL High 200 - 499 mg/dL Very High > or = 500 mg/dL Direct bilirubinon 2 Bilirubin.direct [Mass/Vol] 0.18 mg/dL 0.00-0.30 [facility] Work Phone: [phone] Laboratory - Chemistry and C hemistry - challengeon 01-24-2022 ALP [Catalytic activity/Vol] 96 U/L 45-117 [facility] Work Phone: [phone] ALT [Catalytic activity/Vol] 69 U/L 16-61 [facility] Work Phone: [phone] Globulin (S) [Mass/Vol] 3.2 g/dL 2.2-4.2 [facility] Work Phone: [phone] Serum or plasma albumin lluvia urement (mass/volume)on 01-24-2022 Albumin [Mass/Vol] 4.0 g/dL 3.2-5.[address] [facility] Work Phone: Serum or plasma cholesterol in HDL measurement (mass/volume)on 01-24-2022 Cholesterol in HDL [Mass/Vol] 20 mg/dL >40 [facility] Work Phone: Comment on above: The drugs N-Acetylcy steine and Metamizole may falsely depress this assay. Reference Range HDL <40 mg/dL Low HDL Cholesterol HDL >or= 60 mg/dL High HDL Cholesterol Serum or plasma cholesterol in VLDL measurement (mass/volume)on 01-24-2022 Cholesterol in VLDL [Mass/Vol] 17 mg/dL 5-40 [facility] Work Phone: Serum or plasma low density lipoprotein (LDL) cholesterol measurement (mass/volume)on 01-24-2022 Cholesterol in LDL [Mass/Vol] 41 mg/dL 0-130 [facility] Work Phone: Thin prep Papanicolaou smear with manual screeningon 01-24-2022 Thin prep Papanicolaou smear with manual screening 36 U/L 15-37 [facility] Work Phone: No Panel Informationon 10-20 POC SARS CoV-2 Antigen Positive [facility] Work Phone: CNOVon 04-16-2019 CNOV Office Visit (UROLAG ) -------- CHENG REECE ([id number]) 1960 M Date Time Provider Department 04/16/19 2:00 PM FRANCISCO MAJOR UROABBI During your visit today, we recorded the following information about you: Blood pressure Weight Height 116/68 102.1 kg 1.829 m Francisco Major MD 04/16/2019 2:41 PM Signed NEW PATIENT HISTORY AND PHYSICAL EXAM HPI Cheng Reece is a 59 year old male who presents with BPH, recent urinary tract infection with sepsis. Approximately February 06 he developed flulike symptoms, rigors Admitted with infection. CT done showing cystitis Symptoms resolved with antibiotics and have not recurred. Prior to the acute urinary tract infection he had a couple weeks of minimal lower urinary tract symptoms. At baseline prior to this and now he has minimal to no lower urinary tract symptoms. His infection was significant enough that he developed new onset atrial fibrillation. CT report basically normal except for cystitis. Postvoid residual is acceptable now = 000 cc . Urinalysis no signs of infection now. No results found for: CREAT No results found for: PSA No results found for: COLOR, CLARITY, UGLUC, UBILI, UKET, SPGR, UHB, UPH, UPROT, UROBILINOGEN, NITRITES, LEUKEST REVIEW OF SYSTEMS Review of Systems Constitutional: Negative for chills, fatigue, fever and unexpected weight change. HENT: Negative for sore throat and trouble swallowing. Eyes: Negative for visual disturbance. Respiratory: Negative for shortness of breath and wheezing. Cardiovascular: Negative for chest pain and leg swelling. Gastrointestinal: Positive for abdominal pain. Negative for blood in stool, diarrhea and nausea. Endocrine: Positive for polyuria. Genitourinary: Positive for decreased urine volume and difficulty urinating. Negative for dysuria, enuresis, flank pain, frequency, hematuria and urgency. Nocturia Intermittency Musculoskeletal: Positive for back pain. Skin: Negative for rash. Neurological: Negative for dizziness and headaches. Hematological: Does not bruise/bleed easily. Psychiatric/Behavioral: Negative for behavioral problems and confusion. MEDICATIONS: ELIQUIS 5 mg tab(s), Take 5 mg by mouth twice daily. atorvastatin (LIPITOR) 80 mg tablet, cefdinir (OMNICEF) 300 mg capsule, take 1 capsule by mouth every 12 hours for 4 days CARTIA XT 120 mg 24 hr capsule, Take 120 mg by mouth once daily. losartan (COZAAR) 50 mg tablet, Take 50 mg by mouth once daily. metoprolol tartrate, short acting, (LOPRESSOR) 25 mg tablet, Take 25 mg by mouth twice daily. atenolol (TENORMIN) 50 mg tablet, Take 50 mg by mouth. aspirin 325 mg tablet, Take 325 mg by mouth once daily. omega-3 fatty acids 1,000 mg cap, Take 2 capsule(s) By mouth 2 Times A Day niacin 1,000 mg TbER, Take 1 tablet by mouth twice daily. nitroglycerin sublingual (NITROQUICK) 0.4 mg SL tablet, Take 1 tablet(s) sublingual as needed for chest pain (may repeat every 5 minutes but seek medical help if pain persists after 3 tablets). clopidogrel (PLAVIX) 75 mg tablet, Take 75 mg by mouth once daily. simvastatin (ZOCOR) 40 mg tablet, Take 40 mg by mouth daily at bedtime. AFLURIA [id number], PF, 45 mcg (15 mcg x 3)/0.5 mL syrg, clopidogrel (PLAVIX) 75 mg tablet, HISTORIES PAST MEDICAL HISTORY Diagnosis Date - Coronary arteriosclerosis Unspecified type of vessel, [place] or graft - Essential hypertension Unspecified essential hypertension - Hyperlipidemia Other and unspecified hyperlipidemia - Hypertriglyceridemia - On long-term drug therapy PAST SURGICAL HISTORY Procedure Laterality Date - CARDIAC CATH 05/12/2008 Double vessel CAD, EF=45% - STENT PLACEMENT 05/12/2008 Cardiac Stent - BOOKER RCA AND LAD - STRESS TEST EXERCISE-NUCLEAR 12/27/2015 SOCIAL HISTORY Social History Tobacco Use - Smoking status: Former Smoker - Smokeless tobacco: Former User Substance Use Topics - Alcohol use: Yes Comment: Drinks occasionall on the weekends. - Drug use: No Review of system, history including past medical history, surgical history, family history and social history reviewed and confirmed by me. PHYSICAL EXAMINATION General appearance: Well appearing, alert, in no acute distress and well-hydrated, well nourished Skin: Skin color, texture, turgor normal, no suspicious rashes or lesions HEENT: Respiratory: normal resp effort Cardiovascular: GI: abd soft NT , no CVAT Musculoskeletal: Neuro: normal gait Extremities: Peripheral pulses: MALE EXAM: Rectal Exam: Prostate: size (40grams), symmetrical, nontender, w/o nodules. Sphincter tone normal, no mass. Anus and perineum wnl. Seminal vesicle nonpalpable. No hemorrhoids ASSESSMENT/PLAN: 1. Disorder of prostate - ICD9: 602.9, ICD10: N42.9 (primary diagnosis) - PSA/PROSTSPECAG DIAG 2. Acute cystitis without hematuria - ICD9: 595.0, ICD10: N30.00 Isolated significant cystitis without underlying cause. CT done Baseline symptoms minimal to none ; If recurs, check cystoscopy and transrectal ultrasound. Francisco Major MD Referring Provider: ELINA HEADLEY [[id number]] Allergies As of Date: 04/16/2019 (No Known Allergies) Date Reviewed: 04/16/2019 Reviewed by: Francisco Major - Fully Assessed Reason for Visit: UTI [116] Primary Visit Diagnosis:Disorder of prostate [N42.9] Other Visit Diagnosis:Acute cystitis without hematuria [N30.00] Order(s):UA DIP, URINE (POC) [4581552] Order #: [id number]. #:[id number] 10-LAB PSA/PROSTSPECAG DIAG [SQPSA] Order #: [id number] FUTURE Prescriptions as of 04/16/2019 Sig: ELIQUIS 5 MG TABLET Take 5 mg by mouth twice duglas* ATORVASTATIN 80 MG TABLET CEFDINIR 300 MG CAPSULE take 1 capsule by mouth every* CARTIA XT 120 MG CAPSULE,EXTE* Take 120 mg by mouth once travis* LOSARTAN 50 MG TABLET Take 50 mg by mouth once duglas* METOPROLOL TARTRATE 25 MG TAB* Take 25 mg by mouth twice travis* ATENOLOL 50 MG TABLET Take 50 mg by mouth. ASPIRIN 325 MG TABLET Take 325 mg by mouth once travis* OMEGA-3 FATTY ACIDS 1,000 MG * Take 2 capsule(s) By mouth 2 * NIACIN ER 1,000 MG TABLET,EXT* Take 1 tablet by mouth twice * NITROGLYCERIN 0.4 MG SUBLINGU* Take 1 tablet(s) sublingual a* CLOPIDOGREL 75 MG TABLET Take 75 mg by mouth once duglas* SIMVASTATIN 40 MG TABLET Take 40 mg by mouth daily at * AFLURIA [id number] (PF) 45 MCG* CLOPIDOGREL 75 MG TABLET Problem List As Of Date 04/16/2019 Noted Resolved Coronary arteriosclerosis [I25.10] More... Essential hypertension [I10] More... Hyperlipidemia [E78.5] More... Hypertriglyceridemia [E78.1] On long-term drug therapy [Z79.899] -------- Questionnaire: AUA QUESTIONNAIRE TIMES IN THE PAST MONTH YOU HAD A FEELING OF NOT EMPTYING BLADDER? -> 1 TIMES IN PAST MONTH NEED TO URINATE AGAIN WITHIN 2 HRS OF LAST EMPTY? -> 0 TIMES IN PAST MONTH YOU HAVE STOPPED AND STARTED URINE FLOW? -> 1 TIMES IN THE PAST MONTH YOU FOUND IT DIFFICULT TO POSTPONE URINATING? -> 0 TIMES IN THE PAST MONTH YOU HAVE HAD A WEAK URINARY STREAM? -> 2 TIMES IN PAST MONTH YOU HAVE HAD TO PUSH OR STRAIN TO URINATE? -> 0 TIMES IN PAST MONTH YOU GET UP TO URINATE FROM SLEEP UNTIL AWAKE? -> 1 HOW WOULD YOU FEEL IF YOU HAD TO LIVE WITH YOUR URINARY CONDITION IT IS NOW? * WHAT IT THE TOTAL AUA SCORE? -> 5 Encounter Status:Closed by FRANCISCO MAJOR MD on 04/16/19 [facility] PROGRESSon 04-16-2019 PROGRESS HNO ID: [id number] Author: Francisco Major Service: ? Author Type: Physician Type: Progress Notes Filed: 04/16/2019 2:41 PM Note Text: NEW PATIENT HISTORY AND PHYSICAL EXAM HPI Cheng Reece is a 59 year old male who presents with BPH, recent urinary tract infection with sepsis. Approximately February 06 he developed flulike symptoms, rigors Admitted with infection. CT done showing cystitis Symptoms resolved with antibiotics and have not recurred. Prior to the acute urinary tract infection he had a couple weeks of minimal lower urinary tract symptoms. At baseline prior to this and now he has minimal to no lower urinary tract symptoms. His infection was significant enough that he developed new onset atrial fibrillation. CT report basically normal except for cystitis. Postvoid residual is acceptable now = 000 cc . Urinalysis no signs of infection now. No results found for: CREAT No results found for: PSA No results found for: COLOR, CLARITY, UGLUC, UBILI, UKET, SPGR, UHB, UPH, UPROT, UROBILINOGEN, NITRITES, LEUKEST REVIEW OF SYSTEMS Review of Systems Constitutional: Negative for chills, fatigue, fever and unexpected weight change. HENT: Negative for sore throat and trouble swallowing. Eyes: Negative for visual disturbance. Respiratory: Negative for shortness of breath and wheezing. Cardiovascular: Negative for chest pain and leg swelling. Gastrointestinal: Positive for abdominal pain. Negative for blood in stool, diarrhea and nausea. Endocrine: Positive for polyuria. Genitourinary: Positive for decreased urine volume and difficulty urinating. Negative for dysuria, enuresis, flank pain, frequency, hematuria and urgency. Nocturia Intermittency Musculoskeletal: Positive for back pain. Skin: Negative for rash. Neurological: Negative for dizziness and headaches. Hematological: Does not bruise/bleed easily. Psychiatric/Behavioral: Negative for behavioral problems and confusion. MEDICATIONS: ELIQUIS 5 mg tab(s), Take 5 mg by mouth twice daily. atorvastatin (LIPITOR) 80 mg tablet, cefdinir (OMNICEF) 300 mg capsule, take 1 capsule by mouth every 12 hours for 4 days CARTIA XT 120 mg 24 hr capsule, Take 120 mg by mouth once daily. losartan (COZAAR) 50 mg tablet, Take 50 mg by mouth once daily. metoprolol tartrate, short acting, (LOPRESSOR) 25 mg tablet, Take 25 mg by mouth twice daily. atenolol (TENORMIN) 50 mg tablet, Take 50 mg by mouth. aspirin 325 mg tablet, Take 325 mg by mouth once daily. omega-3 fatty acids 1,000 mg cap, Take 2 capsule(s) By mouth 2 Times A Day niacin 1,000 mg TbER, Take 1 tablet by mouth twice daily. nitroglycerin sublingual (NITROQUICK) 0.4 mg SL tablet, Take 1 tablet(s) sublingual as needed for chest pain (may repeat every 5 minutes but seek medical help if pain persists after 3 tablets). clopidogrel (PLAVIX) 75 mg tablet, Take 75 mg by mouth once daily. simvastatin (ZOCOR) 40 mg tablet, Take 40 mg by mouth daily at bedtime. AFLURIA [id number], PF, 45 mcg (15 mcg x 3)/0.5 mL syrg, clopidogrel (PLAVIX) 75 mg tablet, HISTORIES PAST MEDICAL HISTORY Diagnosis Date - Coronary arteriosclerosis Unspecified type of vessel, [place] or graft - Essential hypertension Unspecified essential hypertension - Hyperlipidemia Other and unspecified hyperlipidemia - Hypertriglyceridemia - On long-term drug therapy PAST SURGICAL HISTORY Procedure Laterality Date - CARDIAC CATH 05/12/2008 Double vessel CAD, EF=45% - STENT PLACEMENT 05/12/2008 Cardiac Stent - BOOKER RCA AND LAD - STRESS TEST EXERCISE-NUCLEAR 12/27/2015 SOCIAL HISTORY Social History Tobacco Use - Smoking status: Former Smoker - Smokeless tobacco: Former User Substance Use Topics - Alcohol use: Yes Comment: Drinks occasionall on the weekends. - Drug use: No Review of system, history including past medical history, surgical history, family history and social history reviewed and confirmed by me. PHYSICAL EXAMINATION General appearance: Well appearing, alert, in no acute distress and well-hydrated, well nourished Skin: Skin color, texture, turgor normal, no suspicious rashes or lesions HEENT: Respiratory: normal resp effort Cardiovascular: GI: abd soft NT , no CVAT Musculoskeletal: Neuro: normal gait Extremities: Peripheral pulses: MALE EXAM: Rectal Exam: Prostate: size (40grams), symmetrical, nontender, w/o nodules. Sphincter tone normal, no mass. Anus and perineum wnl. Seminal vesicle nonpalpable. No hemorrhoids ASSESSMENT/PLAN: 1. Disorder of prostate - ICD9: 602.9, ICD10: N42.9 (primary diagnosis) - PSA/PROSTSPECAG DIAG 2. Acute cystitis without hematuria - ICD9: 595.0, ICD10: N30.00 Isolated significant cystitis without underlying cause. CT done Baseline symptoms minimal to none ; If recurs, check cystoscopy and transrectal ultrasound. Francisco Major MD Normal [facility] Vital Signs Date Time Vital Sign Value Performing Clinician Awildai simone 03-03-2025 09:06-0400 Body height 182.[address] Elina Headley MD Work Phone: [facility] 03-03-2025 09:06-0400 Body mass index (BMI) [Ratio] 31.6 kg/m2 Dr. Elina Headley MD Work Phone: [facility] 03-03-2025 09:06-0400 Body weight 105.[address] Elina Headley MD Work Phone: [facility] 03-03-2025 09:06-0400 Diastolic blood pressure 78 mm[Hg] Dr. Elina Headley MD Work Phone: [facility] 03-03-2025 09:06-0400 Heart rate 56 /min Dr. Elina Headley MD Work Phone: [facility] 03-03-2025 09:06-0400 Respiratory rate 16 /min Dr. Elina Headley MD Work Phone: [facility] 03-03-2025 09:06-0400 Systolic blood pressure 130 mm[Hg] Dr. Elina Headley MD Work Phone: [facility] 01-30-2023 08:36-0400 Body weight 103.41 kg Out [facility] 01-30-2023 08:36-0400 Diastolic blood pressure 88 mm[Hg] [place] [facility] 01-30-2023 08:36-0400 Heart rate 66 /min [facility] 01-30-2023 08:36-0400 Respiratory rate 16 /min Out [facility] 01-30-2023 08:36-0400 Systolic blood pressure 135 mm[Hg] [place] [facility] 01-30-2023 08:33-0400 Body height 182.88 cm [facility] 01-24-2022 08:58-0400 Body height 182.88 cm CESAR GUERRERO Work Phone: [facility] Work Phone: 01-24-2022 08:58-0400 Body mass index (BMI) [Ratio] 31.3 kg/m2 CESAR GUERRERO Work Phone: [facility] Work Phone: 01-24-2022 08:58-0400 Body weight 104.77 kg CESAR GUERRERO Work Phone: [facility] Work Phone: 01-24-2022 08:58-0400 Diastolic blood pressure 79 mm[Hg] CESAR GUERRERO Work Phone: [facility] Work Phone: 01-24-2022 08:58-0400 Heart rate 64 /min PA Liborio Magaña PA Work Phone: [facility] Work Phone: 01-24-2022 08:58-0400 Respiratory rate 16 /min PA Liborio Magaña PA Work Phone: [facility] Work Phone: 01-24-2022 08:58-0400 SaO2% (BldA) [Mass fraction] 95 % PA Liborio Magaña PA Work Phone: [facility] Work Phone: 01-24-2022 08:58-0400 Systolic blood pressure 128 mm[Hg] PA Liborio Magaña PA Work Phone: [facility] Work Phone: 10-20-2021 16:05-0400 Body temperature 98.1 [degF] PA Liborio Magaña PA Work Phone: [facility] Work Phone: 10-20-2021 16:05-0400 Diastolic blood pressure 87 mm[Hg] PA Liborio Magaña PA Work Phone: [facility] Work Phone: 10-20-2021 16:05-0400 Heart rate 65 /min PA Liborio Magaña PA Work Phone: [facility] Work Phone: 10-20-2021 16:05-0400 Respiratory rate 16 /min PA Liborio Magaña PA Work Phone: [facility] Work Phone: 10-20-2021 16:05-0400 SaO2% (BldA) [Mass fraction] 99 % PA Liborio Magaña PA Work Phone: [facility] Work Phone: 10-20-2021 16:05-0400 Systolic blood pressure 129 mm[Hg] PA Liborio Magaña PA Work Phone: [facility] Work Phone: 10-20-2021 14:27-0400 Body mass index (BMI) [Ratio] 31.1 kg/m2 PA Liborio Magaña PA Work Phone: [facility] Work Phone: 10-20-2021 14:27-0400 Body weight 104.32 kg PA Liborio Magaña PA Work Phone: [facility] Work Phone: 10-20-2021 13:43-0400 Body mass index (BMI) [Ratio] 31.3 kg/m2 PA Liborio Magaña PA Work Phone: [facility] Work Phone: 10-20-2021 13:43-0400 Body temperature 98 [degF] PA Liborio Magaña PA Work Phone: [facility] Work Phone: 10-20-2021 13:43-0400 Body weight 104.77 kg PA Liborio Magaña PA Work Phone: [facility] Work Phone: 10-20-2021 13:43-0400 Diastolic blood pressure 78 mm[Hg] PA Liborio Magaña PA Work Phone: [facility] Work Phone: 10-20-2021 13:43-0400 Heart rate 56 /min PA Liborio Magaña PA Work Phone: [facility] Work Phone: 10-20-2021 13:43-0400 Respiratory rate 16 /min PA Liborio Magaña PA Work Phone: [facility] Work Phone: 10-20-2021 13:43-0400 SaO2% (BldA) [Mass fraction] 95 % PA Liborio Magaña PA Work Phone: [facility] Work Phone: 10-20-2021 13:43-0400 Systolic blood pressure 138 mm[Hg] CESAR GUERRERO Work Phone: [facility] Work Phone: Encounters Encounter Date Encounter Type Care Provider Facility Start: 03-03-2025 End: 03-03-2025 ambulatory Christopher Rowe Facility:[facility] Start: 03-03-2025 End: 03-03-[address] Christopher [facility]e [facility] Work Phone: Start: 07-01-2023 End: 07-01-[address] ELINA HEADLEY MD Facility:[facility] Start: 02-12-2023 Non-patient / Non-visit Out [facility] Start: 02-12-2023 [facility]: Start: 02-12-2023 End: 02-12-2023 ambulatory Out of Town [facility] Work Phone: Start: 02-12-2023 End: 02-12-2023 [facility] Work [facility]: Start: 01-30-2023 End: 01-30-2023 ambulatory Out of [place] [facility] Work Phone: Start: 01-30-2023 End: 01-30-2023 Patient encounter procedure Out [facility] Work Phone: Start: 01-24-2022 End: 01-24-2022 Patient encounter procedure CESAR GUERRERO Work Phone: [facility] Start: 10-20-2021 End: 10-20-2021 Patient encounter procedure CESAR GUERRERO Work Phone: [facility] 3 Outp Procedures Date Procedure Procedure Detail Performing Clinician Start: 02-12-2023 Radionuclide imaging of perfusion of myocardium under exercise stress Out [facility] Doctor Start: 05-12-2008 History of placement of stent for coronary artery disease History of coronary artery stent placement CESAR GUERRERO Work Phone: Comment on above: [id number] RCA w/ 3.0 x 20 mm Taxus, IUQ-[id number]-Gemkwp RCA w/ 3.0 x 12 mm Taxus Stent and 3.0 x 32 mm Taxus Stent and BOOKER-Prox LAD w/ 3.5 x 24 mm Taxus 05/12/2008 Plan of Treatment Date Care Activity Detail Author Radionuclide imaging of perfusion of myocardium under exercise stress [facility] Immunizations Immunization Date Immunization Notes Care Provider Fa cility 11-05-2020 Covid (Pfizer) CESAR GUERRERO Work Phone: [facility] 10-15-2020 Covid (Pfizer) CESAR GUERRERO Work Phone: [facility] Payers Date Payer Category Payer Self-pay [id number] 2023 Unknown [id number] 1960 Unknown [id number] Unknown [id number] Social History Date Type Detail Facility Start: 01-24-2022 End: 01-30-2023 Tobacco smoking status OKIS Unknown if ever smoked [facility] Start: 1960 Sex Assigned At Male [facility] Start: 01-30-2023 [facility] Functional Status Date Assessment Result Facility 10-20-2021 Functional status Ambulates;Bathroom Priv ilege [facility] Work Phone: Mental Status Date Assessment Result Facility 10-20-2021 Cognitive function Voice/Name [facility] Work Phone: Evaluation note 05-12-2008 Note Date & Type Note Facility 05-12-2008 Evaluation note Diagnosis Onset Date Essential (primary) hypertension chronic History of coronary artery stent placement May 12, 2008 chronic Mixed hyperlipidemia chronic [facility] Work Phone: Evaluation note Note Date & Type Note Facility Evaluation note No assessment information availa ginger [facility] Work Phone: Reason for referral (narrative) Note Date & Type Note Facility Reason for referral (narrative) No reason for referral information available [facility] Work Phone: Summary Purpose Family History Relationship Condition Age at Onset Recorded Date/T pantera father Hypertension Unknown Malignant neoplasm Unknown Advance Directives No Advanced Directives Records FoundNo Advanced Directives Records FoundNo Advanced Directives Records Found Chief Complaint and Reason for Visit Chief Complaint COVID TEST, AT HOME POSITIVE COVID POS 1 Y FU E ORDERS Reason for Visit Essential (primary) hypertension History of coronary artery stent placement Mixed hyperlipidemia Chief Complaint 1 Y FU EORDER Reason for Visit Essential (primary) hypertension History of coronary artery stent placement Mixed hyperlipidemia Chief Complaint 1 Y FU EORDER . 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 Reason for Visit Essential (primary) hypertension History of coronary artery stent placement Mixed hyperlipidemia Chief Complaint Admit Date 1 y fu w ELECTRIC ORGAN CHECKER per ELECTRIC ORGAN CHECKER March 03, 2025 8:5 6am Additional Source Comments (unrecognized sect ion and content) No Status Records FoundNo Status Records FoundNo Status Records Found INFORMATION SOURCE (unrecogn ized section and content) DATE CREATED AUTHOR 04/16/2019 [facility] DATE CREATED AUTHOR AUTHOR'S ORGANIZ ATION 07/13/2023 [facility] ([place] DATE CREATED AUTHOR AUTHOR'S ORGANIZ ATION 02/28/2025 [facility] Goals (unrecognized section and content) Goals may be documented in a n alternate sectionGoals may be documented in an alternate sectionGoals may be documented in an alternate sectionGoals may be documented in an alternate section Care Teams (unrecognized sec tion and content) Team Status: Active Member Role Status Dates ELINA HEADLEY Family Provider Active Dr. Elina Headley MD Primary Care Provider Active Team Status: Inactive Member Role Status Dates Out of Town Doctor Referring Provider Active Dr. Christopher Rowe MD Attending Provider Active Dr. Elina Headley MD Primary Care Provider Active Team Status: Inactive Member Role Status Dates Dr. Elina Headley MD Primary Care Provider Active Dr. Christopher Rowe MD Attending Provider, Referring Pro vider Active Team Status: Active Member Role Status Dates Dr. Elina Headley MD Primary Care Provider Active Dr. Christopher Rowe MD Attending Provider, Referring Provider, Other Provider Active Team Status: Active Member Role Status Dates Dr. Elina Headley MD Primary Care Provider Active Dr. Edward Harding MD Attending Provider Active Team Status: Active Member Role Status Dates Dr. Elina Headley MD Primary Care Provider Active Self Referred Attending Provider, Referring Provider A ctive Team Status: Active Member Role/Relationship Status Dates ELINA HEADLEY Family Provider Active Dr. Chao Byrd MD Primary Care Provider Active Team Status: Inactive Member Role/Relationship Status Dates Dr. Elina Headley MD Referring Provider Active Start: March 03, 2025 End: March 03, 2025 Dr. Christopher Rowe MD Attending Provider Active S tart: March 03, 2025 End: March 03, 2025 Dr. Chao Byrd MD Primary Care Provider Active Start: March 03, 2025 End: March 03, 2025 FOR RECORDS PERTAINING TO PATIENTS WHO ARE OR HAVE BEEN ENROLLED IN A CHEMICAL DEPENDENCY/SUBSTANCEABUSE PROGRAM, SOME INFORMATION MAY BE OMITTED. This clinical summary was aggregated from multiple sources. Caution should be exercised in using it in the provision of clinical care. This summary normalizes information from multiple sources, and as a consequence, information in this document may materially change the coding, format and clinical context of patient data. In addition, data may be omitted in some cases. CLINICAL DECISIONS SHOULD BE BASED ON THE PRIMARY CLINICAL RECORDS. [employer] provides no warranty or guarantee of the accuracy or completeness of information in this document.
== END | disposition home or self-care (01) ==
LOC: LAB 09:37
PROVIDERS: PCP Family Medicine; Referring Provider Internal Medicine Cardiovascular Disease; Visit Provider Family Medicine
DX: I10 Essential (primary) hypertension (principal); E78.2 Mixed hyperlipidemia; Z12.5 Encounter for screening for malignant neoplasm of prostate
CPT/HCPCS: 36415; 80053; 80061; 83695; 84153; 84443; 85025

== ENCOUNTER → 2025-04-27 | Outpatient (CLI) | payer OTHER, SELFPAY ==
--- NOTE | 2025-04-27 06:12 | ECHOD_ITS ---
Reason For Study Reason For Study: CAD Procedure This was a 2D Doppler, Color Flow transthoracic echocardiogram. Exam performed in department. Left Ventricle Normal LV size. The left ventricular ejection fraction is 55 %. Stage 1 diastolic dysfunction. Infero-Basal: Akinetic. There are regional wall motion abnormalities as specified. The rest of the wall segments are normal. Right Ventricle Normal RV size. Normal systolic function. Atria Normal left atrium. Normal right atrium. Mitral Valve Normal mitral valve. Tricuspid Valve Normal tricuspid valve. Unable to estimate RV systolic pressure due to inadequate jet, pulmonary artery pressure probably normal. Aortic Valve Normal aortic valve. Trisinus/trileaflet aortic valve. Pulmonic Valve Normal pulmonic valve. Great Vessels Normal aortic root. The pulmonary artery is normal size. Inferior vena cava collapse with respiration. Pericardium/Pleural No pericardial effusion. MMode/2D Measurements & Calculations LVIDd: 5.3 cm IVSd: 1.0 cm Ao root diam: 3.2 cm LVIDs: 3.8 cm LVPWd: 1.0 cm RVDd: 3.1 cm FS: 27.9 % LAV(MOD-bp): 31.4 ml LVAd ap4: 29.5 cm2 LVAd ap2: 30.4 cm2 LAV(MOD-bp) Indexed: 13.8 ml/m2 LVLd ap4: 7.7 cm LVLd ap2: 8.7 cm LAV(MOD-sp2): 34.9 ml EDV(MOD-sp4): 96.1 ml EDV(MOD-sp2): 90.8 ml LAV(MOD-sp4): 25.7 ml EDV(sp4-el): 96.1 ml EDV(sp2-el): 90.1 ml LVAs ap4: 18.0 cm2 LVAs ap2: 20.4 cm2 LVLs ap4: 6.7 cm LVLs ap2: 7.7 cm ESV(MOD-sp4): 42.7 ml ESV(MOD-sp2): 50.5 ml ESV(sp4-el): 41.4 ml ESV(sp2-el): 45.7 ml EF(MOD-sp4): 55.6 % EF(MOD-sp2): 44.4 % EF(sp4-el): 56.9 % SV(MOD-sp4): 53.4 ml SV(MOD-sp2): 40.4 ml SV(sp4-el): 54.7 ml SI(MOD-sp4): 23.5 ml/m2 SI(MOD-sp2): 17.8 ml/m2 LA A4 area: 12.6 cm2 LA dimension(2D): 3.5 cm RA A4 area: 10.6 cm2 TAPSE: 1.4 cm Time Measurements MV dec time: 0.26 sec Doppler Measurements & Calculations MV E max henrry: 38.6 cm/sec Lat Peak E' Henrry: 8.2 cm/sec Med Peak E' Henrry: 4.9 cm/sec MV A max henrry: 53.9 cm/sec E/E' lat: 4.7 E/E' med: 7.8 MV E/A: 0.72 Ao V2 max: 123.9 cm/sec LV V1 max: 86.6 cm/sec MV dec slope: 149.5 cm/sec2 Ao max P.1 mmHg LV V1 max P.0 mmHg Ao V2 mean: 83.3 cm/sec LV V1 mean P.6 mmHg Ao mean P.2 mmHg LV V1 mean: 58.0 cm/sec Ao V2 VTI: 21.9 cm LV V1 VTI: 17.9 cm AV (velocity ratio): 0.82 PA V2 max: 112.5 cm/sec ECHO/Echo Complete Interpretation Summary Normal LV size. The left ventricular ejection fraction is 55 %. Infero-Basal: Akinetic. The rest of the wall segments are normal. Stage 1 diastolic dysfunction. Ordering Physician: Christopher Rowe Referring Physician: Chao Byrd Performed By: Jayshree Abrams RDCS
--- OUTSIDE RECORDS SUMMARY | 2025-04-27 06:12 | XMS RPT_ITS | CCD ---
Author Organization [facility] Care Team Providers Care Elementary Librarian Name Role Phone Gómez GUERRERO, CESAR Yates Attending Provider Dr. Christopher Rowe Attending Provider [phone] [facility] Doctor, Out of Primary Care Provider Unavajona bradford [facility] Doctor, Out of Referring Provider Unavailab le [facility] Doctor, Out of Referring Provider Unavailab Dr. Christopher Condon Attending Provider [phone] Elina Head Primary Care Provider Dr. Edward Harding Attending Provider [phone] Dr. Christopher Rowe Referring Provider [phone] Christopher Rwoe Other Provider DR ELINA HEAD MD Primary Care Unavailab le [employer] RELATIONS, EDMOND Attending Unavaila ble Dr. Elina Head MD Referring Provider Dr. Christopher Rowe MD Attending Provider [phone] Dr. Chao Byrd MD Primary Care Provider [phone] Dr. Chao Byrd MD Attending Provider Dr. Christopher Rowe MD Referring Provider Chao Byrd Primary Care Unavailable Elina Head Referring Unavailable Christopher Rowe Attending Unavailable Chao Byrd Primary Care Unavailable Christopher Rowe Referring Unavailable Chao Byrd Attending Unavailable Chao Byrd Primary Care Unavailable Christopher Rowe Referring Unavailable Christopher Rowe Attending Unavailable Medications Current Medications Medication Drug Class(es) Dates Sig (Normalized) Sig (Original) aspirin 81 mg delayed release oral tablet (20 sources) Platelet Aggregation Inhibitor, Nonsteroidal Anti-inflammatory Drug Start: 01-21-2020 take 1 tablet by mouth once daily Aspirin (Adult Aspirin Regimen) 81 mg tablet,delayed release (DR/EC) Active 81 mg PO DAILY January 21, [...] 15, 2017 1:00am August 15, 2017 4:36pm cholecalciferol 0.025 mg oral capsule (2 sources) Vitamin D Start: 03-03-2025 take 1 capsule by mouth once daily Cholecalciferol (Vitamin D3) 25 mcg (1,000 unit) capsule Active 25 ug PO daily March 03, 2025 12:00am omega-3 acid ethyl esters (fdc) 1000 mg oral capsule (5 sources) Start: 07-18-2017 [place] 3-Dha-Ep a-Fish Oil (Fish Oil) 1,000 mg (120 mg-180 mg) capsule Active 1 NMA PO 0 July 18, 2017 1:00am Completed/Discontinued Medications Medication Drug Class(es) Dates Sig (Normalized) Sig (Original) apixaban 5 mg oral tablet (5 sources) Factor Xa Inhibitor Start: 02-26-2019 End: 02-26-2019 take 1 tablet by mouth twice daily Apixaban 5 mg tablet Discontinued 5 mg PO TWICE A DAY 60 0 February 26, 2019 12:00am February 26, 2019 10:33am atenolol 50 mg oral tablet (20 sources) beta-Adrenergic Alirio Start: 08-15-2017 End: 03-10-2025 take 1 tablet by mouth once daily Atenolol 50 mg tablet Discontinued 50 mg PO DAILY 90 4 February 12, 2023 10:01am January 29, 2024 9:01am Start: 08-15-2017 End: 07-26-2018 Atenolol 50 mg [...] mouth at bedtime Atorvastatin 80 mg tablet Discontinued 80 mg PO AT BEDTIME 90 3 November 25, 2024 8:22am March 03, 2025 9:12am clopidogrel 75 mg oral tablet (20 sources) P2Y12 Platelet Inhibitor Start: 07-18-2017 End: 03-03-2025 take 1 tablet by mouth once daily Clopidogrel 75 mg tablet Discontinued 75 mg PO DAILY 90 3 December 11, 2024 8:19am March 03, 2025 9:12am dexamethasone 6 mg oral tablet (10 sources) Corticosteroid Start: 10-20-2021 End: 01-24-2022 take 1 tablet by mouth once daily Dexamethasone (Decadron) 6 mg tablet Discontinued 6 mg PO DAILY 5 0 January 24, 2022 9:05am January 24, 2022 9:06am pt has not started yet 24 hr dilTIAZem hydrochloride 120 mg extended release oral capsule (5 sources) Calcium Channel Alirio Start: 02-26-2019 End: 02-26-2019 take 1 capsule by mouth once daily Diltiazem Hcl 120 mg capsule,extended release 24hr Discontinued 120 mg PO DAILY 30 0 February 26, 2019 12:00am February 26, 2019 10:33am losartan potassium 50 mg oral tablet (20 sources) Angiotensin 2 Receptor Alirio Start: 03-21-2018 End: 03-03-2025 take 1 tablet by mouth once daily Losartan 50 mg tablet Discontinued 50 mg PO daily 90 December 11, 2024 8:18am March 03, 2025 9:12am metoprolol tartrate 25 mg oral tablet (5 sources) beta-Adrenergic Alirio Start: 02-26-2019 End: 02-26-2019 take 1 tablet by mouth twice daily Metoprolol Tartrate 25 mg tablet Discontinued 25 mg PO TWICE A DAY 60 0 February 26, 2019 12:00am February 26, 2019 10:33am niacin 500 mg extended release oral capsule (5 sources) Nicotinic Acid Start: 07-18-2017 End: 08-15-2017 take 1 capsule by mouth once daily in the morning Niacin 500 mg capsule, extended release Discontinued 500 mg PO EVERY MORNING July 18, 2017 1:00am August 15, 2017 5:10pm simvastatin 40 mg oral tablet (10 sources) HMG-CoA Reductase Inhibitor Start: 08-15-2017 End: [...] Date Documented Da te Episodic/Chronic Cardiac dysrhythmias (10 sources) Ventricular premature beats; Translations: [Ventricular premature depolarization] Onset: 02-06-2019 01-17-2021 Chronic Comment on above: admitted w/ sepsis Coronary atherosclerosis and other heart disease (10 sources) Old myocardial infarction; Translations: [Old myocardial infarction] 08-15-2017 Chronic Coronary atherosclerosis and other heart disease (4 sources) Presence of coronary angioplasty implant and graft; Translations: [Percutaneous transluminal coronary angioplasty status] Onset: 05-12-2008 Episodic Disorders of lipid metabolism (9 sources) Mixed hyperlipidemia; Translations: [Mixed hyperlipidemia] Chronic Essential hypertension (10 sources) Essential hypertension; Translations: [Essential (primary) hypertension] Onset: 03-10-2025 Chronic Other nutritional; endocrine; and metabolic disorders (5 sources) Cholesterol level - finding; Translations: [Lipoprotein deficiency] 01-17-2021 Chronic Past or Other Problems Problem Classification Problem Date Documented Da te Episodic/Chronic Viral infection (10 sources) Disease caused by 2019-nCoV; Translations: [COVID-19] Onset: 10-04-2021 01-23-2022 Episodic Results Test Name Value Interpretation Reference Range Facility Lipoprotein Aon 03-04-2025 Lipoprotein a [Mass/Vol] mg/dL Normal <75.0 [facility] Comment on above: Order Comment: Test( s) 377755-[id number] (a) was developed and its performance characteristics determined by [employer]. It has not been cleared or approved by the Food and Drug Administration. Result Comment: Re sults verified by repeat testing Note: Values greater than or equal to 75.0 nmol/L may indicate an independent risk factor for CHD, but must be evaluated with caution when applied to non- populations due to the influence of genetic factors on Lp(a) across ethnicities. Performed at: [address] [id number] Real Estate Branch Manager: Roman Ruiz PhD, Phone: [phone] Performed By: #### L 3404.4600 #### [facility] [address] [place] [address]. [place], [address] Absolute lymphocyte countOrd ered By: Chao Byrd on 03-03-2025 Lymphocytes Auto (Unsp spec) [#/Vol] 1.62 10*3/uL 0.83-4.51 [facility] Absolute neutrophil countOrd ered By: Chao Byrd on 03-03-2025 Neutrophils (Bld) [#/Vol] 2.7 10*3/uL 2.0-7.7 [facility] Anion gap in Serum or Plasma Ordered By: Chao Byrd on 03-03-2025 Anion gap [Moles/Vol] 11 mmol/L 5-15 [facility] Automated lymphocyte count a s percentage of total leukocytesOrdered By: Chao Byrd on 03-03-2025 Lymphocytes/100 WBC Auto (Unsp spec) 32.5 % - [facility] BUN/creatinine ratioOrdered By: Chao Byrd on 03-03-2025 Urea nitrogen/Creatinine [Mass ratio] 17.1 mg/mg 10-20 [facility] Basophil percentageOrdered B y: Chao Byrd on 03-03-2025 Basophils/100 WBC (Bld) 1.0 % 0-1 [facility] Bilirubin, totalOrdered By: Chao Byrd on 03-03-2025 Bilirubin [Mass/Vol] 0.63 mg/dL 0.00-1.30 [facility] CBC W/Diff, Automatedon 02-04 Absolute Lymph 1.62 X10 3/uL Normal 0.83-4.51 [facility] Comment on above: Performed By: #### L 500.4050, L501.9940, L501.9520, L100.0100, L500.4100 #### [facility] [address] [place], [address] Absolute Neut 2.7 X10 3/uL Normal 2.0-7.7 [facility] Comment on above: Performed By: #### L 500.4050, L501.9940, L501.9520, L100.0100, L500.4100 #### [facility] [address] [place], [address] Basophils/100 WBC (Bld) 1.0 % Normal 0-1 [facility] Comment on above: Performed By: #### L 500.4050, L501.9940, L501.9520, L100.0100, L500.4100 #### [facility] [address] [place], [address] Eosinophils/100 WBC (Bld) 2.6 % Normal 0-5 [facility] Comment on above: Performed By: #### L 500.4050, L501.9940, L501.9520, L100.0100, L500.4100 #### [facility] [address] [place], [address] Erythrocyte distribution width (RBC) [Ratio] 13.2 % Normal 11.6-14.6 [facility] Comment on above: Performed By: #### L 500.4050, L501.9940, L501.9520, L100.0100, L500.4100 #### [facility] [address] [place], [address] Hematocrit (Bld) [Volume fraction] 48.5 % Normal 40-54 [facility] Comment on above: Performed By: #### L 500.4050, L501.9940, L501.9520, L100.0100, L500.4100 #### [facility] [address] [place], [address] Hemoglobin (Bld) [Mass/Vol] 16.1 g/dL Normal 13.0-16.5 [facility] Comment on above: Performed By: #### L 500.4050, L501.9940, L501.9520, L100.0100, L500.4100 #### [facility] [address] [place], [address] IG% 1.200 High 0.0-0.9 [facility] Comment on above: Result Comment: IG% - Immature Granulocytes (promyelocytes, myelocytes and metamyelocytes) > 1% indicates that a LEFT SHIFT is Present. Performed By: #### L 500.4050, L501.9940, L501.9520, L100.0100, L500.4100 #### [facility] [address], [address] Lymphocytes/100 WBC (Bld) 32.5 % Normal 19-41 [facility] Comment on above: Performed By: #### L 500.4050, L501.9940, L501.9520, L100.0100, L500.4100 #### [facility] [address] [place], [address] MCH (RBC) [Entitic mass] 31.4 pg Normal 27.0-32.0 [facility] Comment on above: Performed By: #### L 500.4050, L501.9940, L501.9520, L100.0100, L500.4100 #### [facility] [address] [place], [address] MCHC (RBC) [Mass/Vol] 33.2 g/dL Normal 32-36 [facility] Comment on above: Performed By: #### L 500.4050, L501.9940, L501.9520, L100.0100, L500.4100 #### [facility] [address] [place], [address] MCV (RBC) [Entitic vol] 94.7 fL High 80-94 [facility] Comment on above: Performed By: #### L 500.4050, L501.9940, L501.9520, L100.0100, L500.4100 #### [facility] [address] [place], [address] Monocytes/100 WBC (Bld) 9.2 % Normal 0-10 [facility] Comment on above: Performed By: #### L 500.4050, L501.9940, L501.9520, L100.0100, L500.4100 #### [facility] [address] [place], [address] Neutrophils/100 WBC (Bld) 53.5 % Normal 47-70 [facility] Comment on above: Performed By: #### L 500.4050, L501.9940, L501.9520, L100.0100, L500.4100 #### [facility] [address] [place], [address] Nucleated RBC (Bld) [#/Vol] 0 10*3/uL Normal 0-5 [facility] Comment on above: Performed By: #### L 500.4050, L501.9940, L501.9520, L100.0100, L500.4100 #### [facility] [address] [place], [address] Platelet mean volume (Bld) [Entitic vol] 10.0 fL Normal 6.2-12.0 [facility] Comment on above: Performed By: #### L 500.4050, L501.9940, L501.9520, L100.0100, L500.4100 #### [facility] [address] [place], [address] Platelets (Bld) [#/Vol] 188 10*3/uL Normal 150-450 [facility] Comment on above: Performed By: #### L 500.4050, L501.9940, L501.9520, L100.0100, L500.4100 #### [facility] [address] [place], [address] RBC (Bld) [#/Vol] 5.12 10*6/uL Normal 4.6-6.2 [facility] Comment on above: Performed By: #### L 500.4050, L501.9940, L501.9520, L100.0100, L500.4100 #### [facility] [address] [place], [address] RDW SD 46.2 fl High 35.1-43.9 [facility] Comment on above: Performed By: #### L 500.4050, L501.9940, L501.9520, L100.0100, L500.4100 #### [facility] [address] [place], [address] WBC (Bld) [#/Vol] 5.0 10*3/uL Normal 4.4-11.0 [facility] Comment on above: Performed By: #### L 500.4050, L501.9940, L501.9520, L100.0100, L500.4100 #### [facility] [address] [place], [address] Calculated very low density lipoprotein (VLDL) cholesterol measurementOrdered By: Chao alford 03-03-2025 Calculated very low density lipoprotein (VLDL) cholesterol measurement 18 mg/dL 5-40 [facility] Carbon dioxide, total [Moles /volume] in Central venous bloodOrdered By: Chao Byrd on 03-03-2025 CO2 [Moles/Vol] 24.5 mmol/L 21.0-32.0 [facility] Cardiology Visit Reporton Cardiology Visit Report [facility] [address] [place] [address] OFFICE VISIT Date of Service: 03/03/25 MR#: [id number] Acct: [id number] Name: CHENG REECE Rep #: [id number] : 1960 Provider: Dr. Christopher Rowe MD Age/Sex: 65/M [place] [facility] Status: Signed HPI HPI History of Present Illness Details: CHENG REECE, is a 65 M who presents to the office today for a follow up visit. He is a pleasant gentleman who had a myocardial infarction 2007 at that time he was noted to have high-grade right coronary artery lesion as well as left anterior descending artery lesion for which he had bare-metal stenting. He has been doing quite well denying any chest pain or shortness breath or paroxysmal nocturnal dyspnea or pedal edema he has had no neck, jaw discomfort suggest angina is been compliant with all his medications. He does have a history of a markedly low HDL. He had a stress test done in February 2023 where he exercised to a high metabolic workload without any evidence of ischemia. He has had no dizziness or diaphoresis no near syncope or syncope. His physical exam today demonstrates clear lung clark regular rate and rhythm and no pedal edema. 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 Required: No Accompanied by: Self Is patient in pain?: No Allergies No Known Allergies Allergy (Verified 03/03/25 09:08) Medications ???Medication ???Instructions ???Recorded ???Confirmed ???Type omega 5-obb-pgp-fish oil 1,000 mg 1 cap PO 07/18/17 03/03/25 Histor y (120 mg-180 mg) capsule (Fish Oil) aspirin 81 mg tablet,delayed 81 mg PO DAILY 01/21/20 03/03/25 H istory release (Adult Aspirin Regimen) atenolol 50 mg tablet 50 mg PO DAILY #90 tabs 03/03/25 0 03/03/25 Rx atorvastatin 80 mg tablet 80 mg PO QHS #90 tabs 03/03/25 Rx cholecalciferol (vitamin D3) 25 25 mcg PO QDAY 03/03/25 03/03/25 H istory mcg (1,000 unit) capsule clopidogrel 75 mg tablet 75 mg PO DAILY #90 tabs 03/03/25 0 03/03/25 Rx losartan 50 mg tablet 50 mg PO QDAY #90 tabs 03/03/25 Rx Have you fallen in the past year?: No PFSH Medical History COVID (10/2021) Paroxysmal atrial fibrillation with rapid ventricular response (02/06/19) Cystitis Essential (primary) hypertension Premature ventricular beat Atherosclerosis of coronary artery of [place] heart without angina pectoris Mixed hyperlipidemia Old myocardial infarction Low HDL (under 40) Surgical History History of arthroplasty of right knee History of coronary artery stent placement (05/12/08) Family History Father Hypertension Cancer Social History Smoking Status: Former smoker how long ago did patient quit smokin ROS Const Const: Negative for fatigue, weakness, headache(s), daytime sleepiness or difficulty sleeping ENT ENT: Negative for headache(s), dizziness or Nosebleed/epistaxis Cardio Chest Pain: No Palpitations: No Edema: None Resp Respiratory: Negative for SOB with activity, SOB at rest, SOB orthopnea SOB lying down or Cough GI GI: Negative nausea, vomiting or heartburn Neuro Neuro: Negative for dizziness, lightheadedness, near syncope, headache(s) or weakness Endo Endo: Negative for fatigue Cardiology Exam Const Appearance: cooperative, healthy appearing, no acute distress, well developed and well groomed Nutritional Appearance: average body habitus and well nourished Orientation: alert, awake and oriented x3 Head Head: normal to inspection, normocephalic and atraumatic Ears: hearing grossly normal bilaterally and external ears normal Nose: external nose normal, nares normal, nasal mucous membranes and turbinates normal, septum normal and no nasal discharge Face and Sinus: face symmetric Mouth: oral mucosae normal, tongue normal, oropharynx normal and moist mucous membranes Teeth and gingiva: dentition normal Throat: posterior oropharynx normal, tonsils normal and uvula midline Eyes General: appearance normal, both eyes and all related structures Eyelids: eyelids normal Conjunctivae: conjunctivae normal Pupils: PERRL, normal by confrontation and accommodation normal EOM: EOM intact bilaterally Neck Neck: normal visual inspection, trachea midline and no JVD JVD: +5 Carotids: normal carotid upstroke and bounding pulses Chest Chest inspection: normal ins (more content not included)... Normal [facility] Chloride assayOrdered By: Carole Byrd on 03-03-2025 Chloride [Moles/Vol] 105 mmol/L 98-108 [facility] Comprehensive Metabolic Prof ilon 03-03-2025 Albumin [Mass/Vol] 4.5 g/dL Normal 3.4-4.8 [facility] Comment on above: Performed By: #### L 500.4050, L501.9940, L501.9520, L100.0100, L500.4100 #### [facility] [address] [place], [address] Albumin/Globulin [Mass ratio] 1.7 {ratio} Normal 0.9-2.4 [facility] Comment on above: Performed By: #### L 500.4050, L501.9940, L501.9520, L100.0100, L500.4100 #### [facility] [address] [place], [address] ALK PHOS 101 U/L Normal 40-129 [facility] Comment on above: Performed By: #### L 500.4050, L501.9940, L501.9520, L100.0100, L500.4100 #### [facility] [address] [place], [address] ALT [Catalytic activity/Vol] 57 U/L High <=46 [facility] Comment on above: Performed By: #### L 500.4050, L501.9940, L501.9520, L100.0100, L500.4100 #### [facility] [address] [place], [address] AST [Catalytic activity/Vol] 36 U/L Normal <=37 [facility] Comment on above: Performed By: #### L 500.4050, L501.9940, L501.9520, L100.0100, L500.4100 #### [facility] [address] [place], [address] Bilirubin [Mass/Vol] 0.63 mg/dL Normal 0.00-1.30 [facility] Comment on above: Performed By: #### L 500.4050, L501.9940, L501.9520, L100.0100, L500.4100 #### [facility] [address] [place], [address] BUN/CRE 17.1 RATIO Normal 10-20 [facility] Comment on above: Performed By: #### L 500.4050, L501.9940, L501.9520, L100.0100, L500.4100 #### [facility] [address] [place], [address] Calcium [Mass/Vol] 9.5 mg/dL Normal 7.6-11.0 [facility] Comment on above: Performed By: #### L 500.4050, L501.9940, L501.9520, L100.0100, L500.4100 #### [facility] [address] [place], [address] Chloride [Moles/Vol] 105 mmol/L Normal 98-108 [facility] Comment on above: Performed By: #### L 500.4050, L501.9940, L501.9520, L100.0100, L500.4100 #### [facility] [address] [place], [address] CO2 [Moles/Vol] 24.5 mmol/L Normal 21.0-32.0 [facility] Comment on above: Performed By: #### L 500.4050, L501.9940, L501.9520, L100.0100, L500.4100 #### [facility] [address] [place], [address] Creatinine [Mass/Vol] 0.86 mg/dL Normal 0.70-1.20 [facility] Comment on above: Performed By: #### L 500.4050, L501.9940, L501.9520, L100.0100, L500.4100 #### [facility] [address] [place], [address] GAP 11 Normal 5-15 [facility] Comment on above: Performed By: #### L 500.4050, L501.9940, L501.9520, L100.0100, L500.4100 #### [facility] [address] [place], [address] GFR/1.73 sq M.predicted among non-blacks MDRD (S/P/Bld) [Vol rate/Area] 97 mL/min/{1.73_m2} Normal >60 [facility] Comment on above: Result Comment: mL/m in/1.73m2 CKD-EPI Creatinine Equation (2020) Performed By: #### L 500.4050, L501.9940, L501.9520, L100.0100, L500.4100 #### [facility] [address] [place], [address] Globulin (S) [Mass/Vol] 2.7 g/dL Normal 2.2-4.2 [facility] Comment on above: Performed By: #### L 500.4050, L501.9940, L501.9520, L100.0100, L500.4100 #### [facility] [address] [place], [address] Glucose [Mass/Vol] 122 mg/dL High 70-99 [facility] Comment on above: Performed By: #### L 500.4050, L501.9940, L501.9520, L100.0100, L500.4100 #### [facility] [address] [place], [address] Potassium [Moles/Vol] 5.0 mmol/L Normal 3.3-5.1 [facility] Comment on above: Performed By: #### L 500.4050, L501.9940, L501.9520, L100.0100, L500.4100 #### [facility] [address] [place], [address] Sodium [Moles/Vol] 140 mmol/L Normal 133-145 [facility] Comment on above: Performed By: #### L 500.4050, L501.9940, L501.9520, L100.0100, L500.4100 #### [facility] [address] [place], [address] T PROT 7.3 g/dL Normal 5.9-8.4 [facility] Comment on above: Performed By: #### L 500.4050, L501.9940, L501.9520, L100.0100, L500.4100 #### [facility] [address] [place], [address] Urea nitrogen [Mass/Vol] 15 mg/dL Normal 4-19 [facility] Comment on above: Performed By: #### L 500.4050, L501.9940, L501.9520, L100.0100, L500.4100 #### [facility] [address] [place], [place], [address] Eosinophil percentageOrdered By: Chao Byrd on 03-03-2025 Eosinophils/100 WBC (Bld) 2.6 % 0-5 [facility] Erythrocyte distribution wid th ratioOrdered By: Chao Byrd on 03-03-2025 Erythrocyte distribution width (RBC) [Ratio] 13.2 % 11.6-14.6 [facility] Erythrocyte distribution wid th standard deviationOrdered By: Chao Byrd on 03-03-2025 Erythrocyte distribution width (RBC) [Ratio] 46.2 fl High 35.1-43.9 [facility] Glomerular filtration rate ( GFR) estimation/1.73 sq m using serum, plasma, or whole bOrdered By: Chao Byrd on 03-03-2025 GFR/1.73 sq M.predicted among non-blacks MDRD (S/P/Bld) [Vol rate/Area] 97 mL/min/{1.73_m2} >60 [facility] Comment on above: mL/min/1.73m2 CKD-EP I Creatinine Equation (2020) Hematocrit Auto (Bld) [Volum e fraction]Ordered By: Chao Byrd on 03-03-2025 Hematocrit (Bld) [Volume fraction] 48.5 % 40-54 [facility] Hemoglobin measurementOrdere d By: Chao Byrd on 03-03-2025 Hemoglobin (Bld) [Mass/Vol] 16.1 g/dL 13.0-16.5 [facility] Immature granulocytes/100 WB C Auto (Bld)Ordered By: Chao Byrd on 03-03-2025 Immature granulocytes/100 WBC (Bld) 1.200 % High 0.0-0.9 [facility] Comment on above: IG% - Immature Granu locytes (promyelocytes, myelocytes and metamyelocytes) > 1% indicates that a LEFT SHIFT is Present. LDL calc ser/plasOrdered By: Chao Byrd on 03-03-2025 Cholesterol in LDL [Mass/Vol] 54 mg/dL [facility] Comment on above: Lqcqvsvpzp=400-326 m g/dL & Higher Qceu=359 mg/dL or greaterFriedwald Equation for LDL-C Laboratory - Chemistry and C hemistry - challengeOrdered By: Chao Byrd on 03-03-2025 AST [Catalytic activity/Vol] 36 U/L <38 [facility] Lipid Profileon 03-03-2025 CHOL:HDL 4.99 Normal [facility] Comment on above: Performed By: #### L 500.4050, L501.9940, L501.9520, L100.0100, L500.4100 #### [facility] [address] [place], [address] Cholesterol [Mass/Vol] 90 mg/dL Normal <=200 [facility] Comment on above: Result Comment: Chol esterol level, Desirable <200 mg/dL Borderline high cholesterol 200-239 mg/dL High cholesterol >=240 mg/dL Recommendations of the NCEP Adult Treatment Panel for the following risk-cutoff thresholds for the [place] population. Performed By: #### L 500.4050, L501.9940, L501.9520, L100.0100, L500.4100 #### [facility] [address] [place], [address] Cholesterol in HDL [Mass/Vol] 18 mg/dL Low [facility] Comment on above: Result Comment: Kristin onal Cholesterol Education Program (NCEP) guidelines: <40 mg/dL: Low HDL-cholesterol (major risk factor for CHD) >= 60 mg/dL: High HDL-cholesterol (negative risk factor for CHD) HDL-cholesterol is affected by a number of factors, e.g. smoking, exercise, hormones, sex and age. Performed By: #### L 500.4050, L501.9940, L501.9520, L100.0100, L500.4100 #### [facility] [address] [place], [address] Cholesterol in LDL [Mass/Vol] 54 mg/dL Normal [facility] Comment on above: Result Comment: Bord mnxkgn=238-869 mg/dL Higher Uktz=063 mg/dL or greater Friedwald Equation for LDL-C Performed By: #### L 500.4050, L501.9940, L501.9520, L100.0100, L500.4100 #### [facility] [address] [place], [address] Cholesterol in VLDL [Mass/Vol] 18 mg/dL Normal 5-40 [facility] Comment on above: Performed By: #### L 500.4050, L501.9940, L501.9520, L100.0100, L500.4100 #### [facility] [address] [place], [address] Triglyceride [Mass/Vol] 89 mg/dL Normal [facility] Comment on above: Result Comment: The drugs N-Acetylcysteine and Metamizole may falsely depress this assay. Normal range: <150 mg/dL Borderline High: 150-199 mg/dL High: 200-499 mg/dL Very High: >500 mg/dL Performed By: #### L 500.4050, L501.9940, L501.9520, L100.0100, L500.4100 #### [facility] [address] [place], [address] MCV (mean corpuscular volume ) determinationOrdered By: Chao Byrd on 03-03-2025 MCV (RBC) [Entitic vol] 94.7 fL High 80-94 [facility] Mean corpuscular hemoglobin (MCH) determinationOrdered By: Chao Byrd on 03-03-2025 MCH (RBC) [Entitic mass] 31.4 pg 27.0-32.0 [facility] Mean corpuscular hemoglobin concentration (MCHC) determinationOrdered By: Chao Byrd on 03-03-2025 MCHC (RBC) [Mass/Vol] 33.2 g/dL 32-36 [facility] Mean platelet volume determi nationOrdered By: Chao Byrd on 03-03-2025 Platelet mean volume (Bld) [Entitic vol] 10.0 fL 6.2-12.0 [facility] Monocyte percentageOrdered B y: Chao Byrd on 03-03-2025 Monocytes/100 WBC (Bld) 9.2 % 0-10 [facility] Neutrophil percentageOrdered By: Chao Byrd on 03-03-2025 Neutrophils/100 WBC (Bld) 53.5 % 47-70 [facility] Nucleated red blood cell per centageOrdered By: Chao Byrd on 03-03-2025 Nucleated RBC/100 WBC (Bld) [Ratio] 0 % 0-5 [facility] PSA,Total- Diagnosticon 02-04 PSA, DIAGNOSTIC 1.48 ng/mL Normal 0.00-4.00 [facility] Comment on above: Result Comment: This test was performed using the [employer] tPSA method. Measured values of a patient??sample can vary depending on the testing procedure used. PSA values determined on patient samples by different testing procedures cannot be used interchangeably. If there is a change in PSA assays while monitoring therapy, sequential testing should be performed to confirm baseline values. Performed By: #### L 500.4050, L501.9940, L501.9520, L100.0100, L500.4100 #### [facility] [address] [place], [address] Platelet countOrdered By: Carole Byrd on 03-03-2025 Platelets (Bld) [#/Vol] 188 10*3/uL 150-450 [facility] Potassium measurement (mass/ volume)Ordered By: Chao Byrd on 03-03-2025 Potassium (Unsp spec) [Mass/Vol] 5.0 mmol/L 3.3-5.1 [facility] RBC Auto (Bld) [#/Vol]Ordere d By: Chao Byrd on 03-03-2025 RBC (Bld) [#/Vol] 5.12 10*6/uL 4.6-6.2 [facility] Screening total cholesterol/ high density lipoprotein (HDL) cholesterol ratioOrdered By: Chao Byrd on 03-03-2025 Cholesterol.total/Meena sterol in HDL [Mass ratio] 4.99 {ratio} [facility] Serum creatinine measurement (mass/volume)Ordered By: Chao Byrd on 03-03-2025 Creatinine [Mass/Vol] 0.86 mg/dL 0.70-1.20 [facility] Serum globulin measurementOr dered By: Chao Byrd on 03-03-2025 Globulin (S) [Mass/Vol] 2.7 g/dL 2.2-4.2 [facility] Serum glucose measurement (m ass/volume)Ordered By: Chao Byrd on 03-03-2025 Glucose [Mass/Vol] 122 mg/dL High 70-99 [facility] Serum or plasma alanine wilkes otransferase (ALT) measurementOrdered By: Chao Byrd on 03-03-2025 ALT [Catalytic activity/Vol] 57 U/L High <47 [facility] Serum or plasma albumin lluvia urement (mass/volume)Ordered By: Chao Byrd on 03-03-2025 Albumin [Mass/Vol] 4.5 g/dL 3.4-4.8 [facility] Serum or plasma albumin/glob ulin mass ratioOrdered By: Chao Byrd on 03-03-2025 Albumin/Globulin [Mass ratio] 1.7 {ratio} 0.9-2.4 [facility] Serum or plasma alkaline brandi sphatase measurementOrdered By: Chao Byrd on 03-03-2025 ALP [Catalytic activity/Vol] 101 U/L 40-129 [facility] Serum or plasma calcium lluvia urement (mass/volume)Ordered By: Chao Byrd on 03-03-2025 Calcium [Mass/Vol] 9.5 mg/dL 7.6-11.0 [facility] Serum or plasma cholesterol in HDL measurement (mass/volume)Ordered By: Chao Byrd on 03-03-2025 Cholesterol in HDL [Mass/Vol] 18 mg/dL Low >40 [facility] Comment on above: National Cholesterol Education Program (NCEP) guidelines:<40 mg/dL: Low HDL-cholesterol (major risk factor for CHD)>= 60 mg/dL: High HDL-cholesterol (negative risk factor for CHD)HDL-cholesterol is affected by a number of factors, e.g. smoking, exercise, hormones, sex and age. Serum or plasma cholesterol measurement (mass/volume)Ordered By: Chao Byrd on 03-03-2025 Cholesterol [Mass/Vol] 90 mg/dL <201 [facility] Comment on above: Cholesterol level, D esirable <200 mg/dLBorderline high cholesterol 200-239 mg/dLHigh cholesterol >=240 mg/dLRecommendations of the NCEP Adult Treatment Panel for the following risk-cutoff thresholds for the [place] population. Serum or plasma lipoprotein a measurement (mass/volume)Ordered By: Christopher Rowe on 03-03-2025 Lipoprotein a [Mass/Vol] <8.4 nmol/L <75.0 [facility] Comment on above: Results verified b y repeat testingNote: Values greater than or equal to 75.0 nmol/L may indicate an independent risk factor for CHD, but must be evaluated with caution when applied to non- populations due to the influence of genetic factors on Lp(a) across ethnicities.Performed at: [facility] [place] [id number] Director: Roman Ruiz PhD, Phone: [phone] Serum or plasma urea nitroge n measurement (mass/volume)Ordered By: Chao Byrd on 03-03-2025 Urea nitrogen [Mass/Vol] 15 mg/dL 4-19 [facility] Sodium levelOrdered By: Yomi Byrd on 03-03-2025 Sodium [Moles/Vol] 140 mmol/L 133-145 [facility] TSH DL <= 0.005 mIU/L QnOrde red By: Chao Byrd on 03-03-2025 TSH Qn 2.770 uIU/mL 0.300-4.200 [facility] Thyroid Stim Hormone (TSH)on 03-03-2025 TSH 2.770 uIU/mL Normal 0.300-4.200 [facility] Comment on above: Performed By: #### L 500.4050, L501.9940, L501.9520, L100.0100, L500.4100 #### [facility] [address] [place], [address] Total proteinOrdered By: Fei Byrd on 03-03-2025 Protein [Mass/Vol] 7.3 g/dL 5.9-8.4 [facility] Triglycerides measurementOrd ered By: Chao Byrd on 03-03-2025 Triglyceride [Mass/Vol] 89 mg/dL <199 [facility] Comment on above: The drugs N-Acetylcy steine and Metamizole may falsely depress this assay. Normal range: <150 mg/dLBorderline High: 150-199 mg/dLHigh: 200-499 mg/dLVery High: >500 mg/dL White blood cell (WBC) count Ordered By: Chao Byrd on 03-03-2025 WBC (Bld) [#/Vol] 5.0 10*3/uL 4.4-11.0 [facility] Basophil percentageOrdered B y: [place] Soledad on 01-30-2023 Bilirubin [Mass/Vol] 0.90 mg/dL 0.20-1.00 [facility] Comment on above: For patients on eltr ombopag therapy, use of [place] TBIL is not recommended. Cholesterol [Mass/Vol] 86 mg/dL <[address] [facility] Comment on above: <200 mg/dL Desirable 200-240 mg/dL Borderline >240 mg/dL High Risk Protein [Mass/Vol] 7.4 g/dL 6.4-8.2 [facility] Triglyceride [Mass/Vol] 78 mg/dL <199 [facility] Comment on above: The drugs N-Acetylcy steine and Metamizole may falsely depress this assay.Serum Triglycerides Reference Interval Normal <150 mg/dL Borderline high 150 - 199 mg/dL High 200 - 499 mg/dL Very High > or = 500 mg/dL Direct bilirubinOrdered By: Christopher Soledad on 01-30-2023 Bilirubin.direct [Mass/Vol] 0.20 mg/dL 0.00-0.30 [facility] Laboratory - Chemistry and C hemistry - challengeOrdered By: Bel[place] Soledad on 01-30-2023 ALP [Catalytic activity/Vol] 97 U/L 45-117 [facility] ALT [Catalytic activity/Vol] 51 U/L 16-61 [facility] Globulin (S) [Mass/Vol] 3.5 g/dL 2.2-4.2 [facility] No Panel InformationOrdered By: Christopher Rowe on 01-30-2023 Thyroid Stimulating Hormone (TSH) 3.36 uIU/mL 0.358-3.74 [facility] Serum or plasma albumin lluvia urement (mass/volume)Ordered By: Christopher Rowe on 01-30-2023 Albumin [Mass/Vol] 3.9 g/dL 3.2-5.0 [facility] Serum or plasma cholesterol in HDL measurement (mass/volume)Ordered By: Christopher Rowe on 01-30-2023 Cholesterol in HDL [Mass/Vol] 15 mg/dL >40 [facility] Comment on above: The drugs N-Acetylcy steine and Metamizole may falsely depress this assay. Reference Range HDL <40 mg/dL Low HDL Cholesterol HDL >or= 60 mg/dL High HDL Cholesterol Serum or plasma cholesterol in VLDL measurement (mass/volume)Ordered By: Christopher Rowe on 01-30-2023 Cholesterol in VLDL [Mass/Vol] 16 mg/dL 5-40 [facility] Serum or plasma low density lipoprotein (LDL) cholesterol measurement (mass/volume)Ordered By: Christopher Rowe on 01-30-2023 Cholesterol in LDL [Mass/Vol] 55 mg/dL 0-130 [facility] Thin prep Papanicolaou smear with manual screeningOrdered By: Christopher Rowe on 01-30-2023 Thin prep Papanicolaou smear with manual screening 31 U/L 15-37 [facility] Comment on above: Slight Hemolysis, Re sult may be falsely increased. Basophil percentageon 2021 Bilirubin [Mass/Vol] 0.50 mg/dL 0.20-1.00 [facility] Work Phone: Comment on above: For patients on eltr ombopag therapy, use of [place] TBIL is not recommended. Cholesterol [Mass/Vol] 78 mg/dL <200 [facility] Work Phone: Comment on above: <200 mg/dL Desirable 200-240 mg/dL Borderline >240 mg/dL High Risk Protein [Mass/Vol] 7.2 g/dL 6.4-8.2 [facility] Work Phone: Triglyceride [Mass/Vol] 85 mg/dL <199 [facility] Work Phone: Comment on above: The drugs N-Acetylcy steine and Metamizole may falsely depress this assay.Serum Triglycerides Reference Interval Normal <150 mg/dL Borderline high 150 - 199 mg/dL High 200 - 499 mg/dL Very High > or = 500 mg/dL Direct bilirubinon Bilirubin.direct [Mass/Vol] 0.18 mg/dL 0.00-0.30 [facility] Work Phone: Laboratory - Chemistry and C hemistry - challengeon 01-24-2022 ALP [Catalytic activity/Vol] 96 U/L 45-117 [facility] Work Phone: ALT [Catalytic activity/Vol] 69 U/L 16-61 [facility] Work Phone: Globulin (S) [Mass/Vol] 3.2 g/dL 2.2-4.2 [facility] Work Phone: Serum or plasma albumin lluvia urement (mass/volume)on 01-24-2022 Albumin [Mass/Vol] 4.0 g/dL 3.2-5.0 [facility] Work Phone: Serum or plasma cholesterol in HDL measurement (mass/volume)on 01-24-2022 Cholesterol in HDL [Mass/Vol] 20 mg/dL >40 [facility] Work Phone: Comment on above: The drugs N-Acetylcy steine and Metamizole may falsely depress this assay. Reference Range HDL <40 mg/dL Low HDL Cholesterol HDL >or= 60 mg/dL High HDL Cholesterol Serum or plasma cholesterol in VLDL measurement (mass/volume)on 01-24-2022 Cholesterol in VLDL [Mass/Vol] 17 mg/dL 5-40 [facility] Work Phone: [phone] Serum or plasma low density lipoprotein (LDL) cholesterol measurement (mass/volume)on 01-24-2022 Cholesterol in LDL [Mass/Vol] 41 mg/dL 0-130 [facility] Work Phone: Thin prep Papanicolaou smear with manual screeningon 01-24-2022 Thin prep Papanicolaou smear with manual screening 36 U/L 15-37 [facility] Work Phone: No Panel Informationon 10-20 POC SARS CoV-2 Antigen Positive [facility] Work Phone: CNOVon 04-16-2019 CNOV Office Visit (UROLAG ) SHANELLCHENG ([id number]) 1960 M Date Time Provider Department 04/16/19 2:00 PM FRANCISCO GALLO UROLAG During your visit today, we recorded the following information about you: Blood pressure Weight Height 116/68 102.1 kg 1.829 m Francisco Gallo MD 04/16/2019 2:41 PM Signed NEW PATIENT [...] mg by mouth daily at bedtime. 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 Francisco Gallo MD Referring Provider: ELINA HEAD [[id number]] Allergies As of Date: 04/16/2019 (No Known Allergies) Date Reviewed: 04/16/2019 Reviewed by: Francisco Gallo - Fully Assessed Reason for Visit: UTI [116] Primary Visit Diagnosis:Disorder of prostate [N42.9] Other Visit Diagnosis:Acute cystitis without hematuria [N30.00] Order(s):UA DIP, URINE (POC) [6290457] Order #: [id number]. #:[id number] 610-LAB PSA/PROSTSPECAG DIAG [SQPSA] Order #: [id number] FUTURE Prescriptions as of 04/16/2019 Sig: ELIQUIS [...] mg by mouth daily at * AFLURIA [id number] (PF) 45 MCG* CLOPIDOGREL 75 MG TABLET Problem List As Of Date 04/16/2019 Noted Resolved Coronary arteriosclerosis [I25.10] More... Essential hypertension [I10] More... Hyperlipidemia [E78.5] More... Hypertriglyceridemia [E78.1] On assisted drug therapy [Z79.899] Questionnaire: AUA QUESTIONNAIRE TIMES IN THE PAST [...] SCORE? -> 5 Encounter Status:Closed by FRANCISCO GALLO MD on 04/16/19 [facility] PROGRESSon 09-11-2019 PROGRESS HNO ID: [id number] Author: Francisco Gallo Service: ? Author Type: Physician Type: Progress [...] mg by mouth daily at bedtime. AFLURIA [id number], PF, 45 mcg (15 mcg x 3)/0.5 mL syrg, clopidogrel (PLAVIX) 75 mg tablet, HISTORIES PAST MEDICAL HISTORY Diagnosis Date - Coronary arteriosclerosis Unspecified type of vessel, assiniboine and sioux or graft - Essential hypertension Unspecified essential hypertension - Hyperlipidemia Other and unspecified hyperlipidemia - Hypertriglyceridemia - On assisted drug therapy PAST SURGICAL HISTORY Procedure Laterality [...] recurs, check cystoscopy and transrectal ultrasound. Francisco Gallo MD [facility] Vital Signs Date Time Vital Sign Value Performing Clinician Faci lity 03-03-2025 09:06-0400 Body height 182.[address] Elina Head MD Work Phone: [facility] 03-03-2025 09:06-0400 Body mass index (BMI) [Ratio] 31.6 kg/m2 Dr. Elina Head MD Work Phone: [facility] 03-03-2025 09:06-0400 Body weight 105.[address] Elina Head MD Work Phone: [facility] 03-03-2025 09:06-0400 Diastolic blood pressure 78 mm[Hg] Dr. Elina Head MD Work Phone: [facility] 03-03-2025 09:06-0400 Heart rate 56 /min Dr. Elina Head MD Work Phone: [facility] 03-03-2025 09:06-0400 Respiratory rate 16 /min Dr. Elina Head MD Work Phone: [facility] 03-03-2025 09:06-0400 Systolic blood pressure 130 mm[Hg] Dr. Elina Head MD Work Phone: [facility] 01-30-2023 08:36-0400 Body weight 103.41 kg [place] [facility] 01-30-2023 08:36-0400 Diastolic blood pressure 88 mm[Hg] Out [facility] 01-30-2023 08:36-0400 Heart rate 66 /min [place] [facility] 01-30-2023 08:36-0400 Respiratory rate 16 /min [place] Doctor [facility] 01-30-2023 08:36-0400 Systolic blood pressure 135 mm[Hg] Out [facility] Doctor [facility] 01-30-2023 08:33-0400 Body height 182.88 cm [place] Doctor [facility] 01-24-2022 08:58-0400 Body height 182.88 cm PA Liborio GUERRERO Work Phone: [facility] Work Phone: 01-24-2022 08:58-0400 Body mass index (BMI) [Ratio] 31.3 kg/m2 PA Liborio Magaña PA Work Phone: [facility] Work Phone: 01-24-2022 08:58-0400 Body weight 104.77 kg PA Liborio GUERRERO Work Phone: [facility] Work Phone: 01-24-2022 08:58-0400 Diastolic blood pressure 79 mm[Hg] PA Liborio Magaña PA Work Phone: [facility] Work Phone: 01-24-2022 08:58-0400 Heart rate 64 /min PA Liborio GUERRERO Work Phone: [facility] Work Phone: 01-24-2022 08:58-0400 Respiratory rate 16 /min PA Liborio GUERRERO Work Phone: [facility] Work Phone: 01-24-2022 08:58-0400 SaO2% (BldA) [Mass fraction] 95 % PA Liborio Magaña PA Work Phone: [facility] Work Phone: 01-24-2022 08:58-0400 Systolic blood pressure 128 mm[Hg] CESAR GUERRERO Work Phone: [facility] Work Phone: 10-20-2021 16:05-0400 Body temperature 98.1 [degF] PA Liborio GUERRERO Work Phone: [facility] Work Phone: 10-20-2021 16:05-0400 Diastolic blood pressure 87 mm[Hg] PA Liborio Magaña PA Work Phone: [facility] Work Phone: 10-20-2021 16:05-0400 Heart rate 65 /min PA Liborio Magaña PA Work Phone: [facility] Work Phone: 10-20-2021 16:05-0400 Respiratory rate 16 /min PA Liborio Magaña PA Work Phone: [facility] Work Phone: 10-20-2021 16:05-0400 SaO2% (BldA) [Mass fraction] 99 % PA Liborio Magaña PA Work Phone: [facility] Work Phone: 10-20-2021 16:05-0400 Systolic blood pressure 129 mm[Hg] PA Liborio Magaña PA Work Phone: [facility] Work Phone: 10-20-2021 14:27-0400 Body mass index (BMI) [Ratio] 31.1 kg/m2 PA Liborio Magaña PA Work Phone: [facility] Work Phone: 10-20-2021 14:27-0400 Body weight 104.32 kg PA Liborio Magaña PA Work Phone: [facility] Work Phone: 10-20-2021 13:43-0400 Body mass index (BMI) [Ratio] 31.3 kg/m2 PA Liborio Magaña PA Work Phone: [facility] Work Phone: 10-20-2021 13:43-0400 Body temperature 98 [degF] PA Liborio Magaña PA Work Phone: [facility] Work Phone: 10-20-2021 13:43-0400 Body weight 104.77 kg PA Liborio Magaña PA Work Phone: [facility] Work Phone: 10-20-2021 13:43-0400 Diastolic blood pressure 78 mm[Hg] PA Liborio Magaña PA Work Phone: [facility] Work Phone: 10-20-2021 13:43-0400 Heart rate 56 /min PA Liborio Magaña PA Work Phone: [facility] Work Phone: 10-20-2021 13:43-0400 Respiratory rate 16 /min PA Liborio Magaña PA Work Phone: [facility] Work Phone: 10-20-2021 13:43-0400 SaO2% (BldA) [Mass fraction] 95 % PA Liborio Magaña PA Work Phone: [facility] Work Phone: 10-20-2021 13:43-0400 Systolic blood pressure 138 mm[Hg] PA Liborio Magaña PA Work Phone: [facility] Work Phone: Encounters Encounter Date Encounter Type Care Provider Facility Start: 03-26-2025 ambulatory [facility] Facility :[facility] Start: 03-03-2025 End: 03-03-[address] Christopher Rowe MD -[facility] Work Phone: Start: 03-03-2025 End: 03-03-[address] Elina Head MD Work Phone: -[facility] Start: 03-03-2025 End: 03-03-2025 ambulatory Chao Byrd Facility:[facility] Start: 07-01-2023 End: 07-01-[address] ELINA HEAD MD Facility:A Start: 02-12-2023 Non-patient / Non-visit Out [facility] Doc tor [facility] Start: 02-12-2023 [facility]: Start: 02-12-2023 End: 02-12-[address] [facility] Work Phone: Start: 02-12-2023 End: 02-12-2023 [facility]: Start: 01-30-2023 End: 01-30-[address] [facility] Work Phone: Start: 01-30-2023 End: 01-30-2023 Patient encounter procedure Out [facility] Work Phone: Start: 01-24-2022 End: 01-24-2022 Patient encounter procedure CESAR GUERRERO Work Phone: [facility] Start: 10-20-2021 End: 10-20-2021 Patient encounter procedure CESAR GUERRERO Work Phone: [facility] Surgical 3 Outp Procedures Date Procedure Procedure Detail Performing Clinician Start: 03-03-2025 Assay of prostate specific antigen total Dr. Elina Head MD Work Phone: Comment on above: This test was perfor med using the [employer] tPSA method. Measured values of a patient sample can vary depending on the testing procedure used. PSA values determined on patient samples by different testing procedures cannot be used interchangeably. If there is a change in PSA assays while monitoring therapy, sequential testing should be performed to confirm baseline values. Start: 02-12-2023 Radionuclide imaging of perfusion of myocardium under exercise stress [facility] Start: 05-12-2008 History of placement of stent for coronary artery disease History of coronary artery stent placement Dr. Christopher Rowe MD Comment on above: DJA-PUE-Vzir RCA w/ 3.0 x 20 mm Taxus, KJY-Ypf-Cvwhtg RCA w/ 3.0 x 12 mm Taxus Stent and 3.0 x 32 mm Taxus Stent and BOOKER-Prox LAD w/ 3.5 x 24 mm [facility] 05/12/2008 Plan of Treatment Date Care Activity Detail Author Radionuclide imaging of perfusion of myocardium under exercise stress [facility] Radionuclide imaging of perfusion of myocardium under exercise stress [facility] Immunizations Immunization Date Immunization Notes Care Provider Fa cility 11-05-2020 Covid (Pfizer) CESAR GUERRERO Work Phone: [facility] 10-15-2020 Covid (Pfizer) CESAR GUERRERO Work Phone: [facility] Payers Date Payer Category Payer Self-pay [id number] 2023 Unknown [id number] 1960 Unknown [id number] Unknown [id number] Unknown [id number] Unknown [id number] Social History Date Type Detail Facility Start: 01-24-2022 End: 01-30-2023 Tobacco smoking status INIS Unknown if ever smoked [facility] Start: 1960 Sex Assigned At Male [facility] Start: 01-30-2023 Tobacco smoking stat us INIS Ex-smoker (finding) [facility] Functional Status Date Assessment Result Facility 10-20-2021 Functional status Ambulates;Bathroom Priv ilege [facility] Work Phone: Mental Status Date Assessment Result Facility 10-20-2021 Cognitive function Voice/Name [facility] Work Phone: Evaluation note 03-03-2025 Note Date & Type Note Facility 03-03-2025 Evaluation note Diagnosis Onset Date Resolution Essential (primary) hypertension chronic March 03, 2025 8:56am History of coronary artery stent placement May 12, 2008 chronic March 03, 2025 8:56am Mixed hyperlipidemia chronic March 03, 2025 8:56am [facility] Work Phone: Evaluation note 05-12-2008 Note Date & Type Note Facility 05-12-2008 Evaluation note Diagnosis Onset Date Essential (primary) hypertension chronic History of coronary artery stent placement May 12, 2008 chronic Mixed hyperlipidemia chronic [facility] Work Phone: Evaluation note Note Date & Type Note Facility Evaluation note No assessment information availa ble [facility] Work Phone: Reason for referral (narrative) Note Date & Type Note Facility Reason for referral (narrative) No reason for referral information available [facility] Work Phone: Summary Purpose Family History No Family History Records Found Relationship Condition Age at Onset Recorded Date/T [...] FU EORDER . Blood Flow Screening - [employer] . Reason for Visit Essential (primary) hypertension History of coronary artery stent placement Mixed hyperlipidemia Chief Complaint Admit Date 1 y fu w BONE WORKER per BONE WORKER March 03, 2025 8:5 6am Chief Complaint Admit Date 1 y fu w BONE WORKER per BONE WORKER March 03, 2025 8:[address] BAEZ/ ALSO EORDER DR ROWE March 03, 2025 9:34am Reason for Visit Admit Date Essential (primary) hypertension March 032024 8:56am History of coronary artery stent placeme nt March 03, 2025 8:56am Mixed hyperlipidemia March 03, 2025 8:5 6am Additional Source Comments (unrecognized sect ion and content) No Status Records FoundNo Status Records FoundNo Status Records Found INFORMATION SOURCE (unrecogn ized section and content) DATE CREATED AUTHOR 04/16/2019 [facility] DATE CREATED AUTHOR AUTHOR'S ORGANIZ ATION 07/13/2023 [facility] DATE CREATED AUTHOR AUTHOR'S ORGANIZ ATION 03/22/2025 [facility] Goals (unrecognized section and content) Goals may be documented in a n alternate sectionGoals may be documented in an alternate sectionGoals may be documented in an alternate sectionGoals may be documented in an alternate sectionGoals may be documented in an alternate section Care Teams (unrecognized sec tion and content) Team Status: Active Member Role Status Dates ELINA HEAD Family Provider Active Dr. Elina Head MD Primary Care Provider Active Team Status: Inactive Member Role Status Dates Out of Town Doctor Referring Provider Active Dr. Christopher Rowe MD Attending Provider Active Dr. Elina Head MD Primary Care Provider Active Team Status: Inactive Member Role Status Dates Dr. Elina Head MD Primary Care Provider Active Dr. Christopher Rowe MD Attending Provider, Referring Pro vider Active Team Status: Active Member Role Status Dates Dr. Elina Head MD Primary Care Provider Active Dr. Christopher Rowe MD Attending Provider, Referring Provider, Other Provider Active Team Status: Active Member Role Status Dates Dr. Elina Head MD Primary Care Provider Active Dr. Edward Harding MD Attending Provider Active Team Status: Active Member Role Status Dates Dr. Elina Head MD Primary Care Provider Active Self Referred Attending Provider, Referring Provider A ctive Team Status: Active Member Role/Relationship Status Dates ELINA HEAD Family Provider Active Dr. Chao Byrd MD Primary Care Provider Active Team Status: Inactive Member Role/Relationship Status Dates Dr. Elina Head MD Referring Provider Active Start: March 03, 2025 End: March 03, 2025 Dr. Christopher Rowe MD Attending Provider Active S tart: March 03, 2025 End: March 03, 2025 Dr. Chao Byrd MD Primary Care Provider Active Start: March 03, 2025 End: March 03, 2025 Team Status: Active Member Role/Relationship Status Dates Dr. Chao Byrd MD Primary Care Provider Active Team Status: Inactive Member Role/Relationship Status Dates Dr. Chao Byrd MD Primary Care Provider Active Start: March 03, 2025 End: March 03, 2025 Dr. Chao Byrd MD Attending Provider Active Start: March 03, 2025 End: March 03, 2025 Dr. Christopher Rowe MD Referring Provider Active S tart: March 03, 2025 [...] BE BASED ON THE PRIMARY CLINICAL RECORDS. [facility] [employer] [facility]. provides no warranty or guarantee of the accuracy or completeness of information in this document.
--- NOTE | 2025-04-27 11:56 | STRESSREP_ITS ---
Stress Test Report Exercise myocardial perfusion stress test. 65-year-old man with a history of coronary artery disease. Stress protocol: Resting EKG demonstrates normal sinus rhythm with a rate of 73 bpm resting blood pressure is 142/86 mmHg. The patient exercised according to the regular Graham protocol for a total duration of 10 minutes and 15 seconds attaining a maximum heart rate of 155 bpm which was 99% of maximum predicted heart rate; the maximum workload was 13.4 metabolic equivalents. At rest there were no ST or T wave changes noted to suggest ischemia and at peak exercise upsloping ST changes only were noted which did not meet the criteria for ischemia. No clinical angina was noted the test was terminated due to the target heart rate being achieved/fatigue. The peak blood pressure was 164/80 mmHg. Rate-pressure product was 23,600. Myocardial perfusion protocol. 13 point mCi of technetium 99m sestamibi was injected at rest. The patient exercised according to regular Graham protocol for total duration of 10 minutes and 15 seconds and at peak exercise 43.6 mCi of technetium 99m sestamibi was injected stress images were obtained stress and rest images were reconstructed in comparing the short axis vertical long and horizontal long axis. Gated images were also obtained. Perfusion SPECT analysis: Review of the stress images demonstrate normal uptake of tracer noted in all areas of the myocardium. The resting images similarly demonstrate normal uptake of tracer noted in all areas of the myocardium. No areas of reversibility are no joe to suggest ischemia no previous infarct was noted. Gated SPECT analysis: The gated ejection fraction is 66%. Conclusion: Normal exercise myocardial perfusion stress test at a high workload.
== END | disposition home or self-care (01) ==
PROVIDERS: PCP Family Medicine; Referring Provider Internal Medicine Cardiovascular Disease; Visit Provider Internal Medicine Cardiovascular Disease
DX: I25.10 Atherosclerotic heart disease of native coronary artery without angina pectoris (principal); Z95.5 Presence of coronary angioplasty implant and graft
CPT/HCPCS: 78452; 93017; 93306; A9500; A4216